=== PATIENT | male | born 1995 | race Two or more races ===

== ENCOUNTER 2021-02-18 09:32 | Outpatient (REF) | payer OTHER, SELFPAY ==
[2021-02-18 10:11] LABS: COVID-19 Test Negative (Negative)
== END 2021-02-18 09:33 | disposition home or self-care (01) ==
LOC: HO.LAB 09:32
PROVIDERS: Visit Provider Internal Medicine
DX: Z20.822 Contact with and (suspected) exposure to COVID-19 (principal)
CPT/HCPCS: 36415; 87635; C9803

== ENCOUNTER 2021-02-19 20:23 | Emergency (ER) | payer OTHER, SELFPAY ==
--- NOTE | 2021-02-19 21:41 | ED_ITS ---
HPI - URI/Sore Throat General Chief Complaint: General Medical Stated Complaint: Sore throat/ cough chest pain Time Seen by Provider: 02/19/21 21:41 Source: patient Mode of arrival: ambulatory Limitations: no limitations History of Present Illness HPI Narrative: Patient complaining of sore throat nasal congestion for last 3 days had COVID testing done yesterday which was negative feels throat scratchy painful to swallow no other family member sick at home, dry cough body aches+ no nausea vomiting diarrhea Related Data Previous Rx's Medication Instructions Recorded amoxicillin-pot clavulanate 1 tab PO BID #20 tab 02/19/21 [Augmentin] Allergies Allergy/AdvReac Type Severity Reaction Status Date / Time No Known Allergies Allergy Verified 02/19/21 21:54 Review of Systems Review of Systems: Yes all other systems are reviewed and are negative [facility] Social History Social History Advance Directives: No Advance Directives Information Provided: No Physical Exam Vital Signs: Vital Signs: Last Vital Signs Temp 98.4 F 02/19/21 21:50 Pulse 91 02/19/21 21:50 Resp 18 02/19/21 21:50 BP 144/89 H 02/19/21 21:50 Pulse Ox 98 02/19/21 21:50 Body Mass Index 41.1 Appearance: Alert. Oriented X3. No acute distress. Eyes: PERRLA, No Nystagmus ENT: Erythema of the posterior pharynx+ no exudate, tonsils normal size, Oral Mucosa moist, tympanic membrane intact Neck: Normal inspection. Neck supple. CVS: Normal heart rate and rhythm. Pulses normal. Respiratory: No respiratory distress. Equal air entry bilateral, no wheezing/rales/rhonchi Abdomen: Soft and nontender. Bowel sounds are present, no mass palpable, no CVA tenderness Skin: Skin warm and dry. Normal skin color. Normal skin turgor. Extremities: No lower extremity edema. No calf tenderness Neuro: Oriented X 3. No motor deficit. No sensory deficit. MDM - URI/Sore Throat Lab Data Attestation: I reviewed the patient's lab results. Labs: Lab Results 02/19/21 Range/Units 22:07 S. pyogenes GrpA SB Negative (Negative) Discharge Plan Discharge Clinical Impression: Acute bacterial pharyngitis Patient Disposition: Home, Self-Care Instructions: Pharyngitis (ED) Additional Instructions: Take antibiotic as prescribed. Drink plenty of fluids Prescriptions: New amoxicillin-pot clavulanate [Augmentin] 875-125 mg tablet 1 tab PO BID Qty: 20 RF: 0 Discharge Date/Time: 02/19/21 22:53
[2021-02-19 21:50] VITALS: BP 144/89; PULSE 91; RESP 18; TEMP 36.9; O2SAT 98; BMI 41.1
[2021-02-19] MEDS: Amoxicillin/Potassium Clav 875 MG TABLET PO (22:18)
[2021-02-19 22:20] LABS: IDNOW Serial# 9DD0AD1C; Strep A Nucleic Acid Negative (Negative)
== END 2021-02-19 22:53 | disposition home or self-care (01) ==
PROVIDERS: Emergency Provider Internal Medicine
DX: J02.8 Acute pharyngitis due to other specified organisms (principal)
CPT/HCPCS: 36415; 87651; 99283

== ENCOUNTER 2021-04-23 11:40 | Emergency (ER) | payer OTHER, SELFPAY ==
--- NOTE | ~2021-04-23 | XR_ITS ---
EXAMINATION: XR CHEST CLINICAL INFORMATION: Productive cough. COMPARISON: Chest radiograph dated 06/27/2019. TECHNIQUE: 2 views of the chest were obtained. FINDINGS: The lungs are clear. The cardiomediastinal silhouette is normal in size. There is no pleural effusion or pneumothorax. No acute osseous abnormality. XR/XR chest 2V IMPRESSION: No acute cardiopulmonary findings.
[2021-04-23 11:43] VITALS: BP 133/82; PULSE 90; RESP 18; TEMP 36.7; O2SAT 99; BMI 41.2
--- NOTE | 2021-04-23 13:11 | ED_ITS ---
HPI - Abdominal Pain General Chief Complaint: Abdominal Pain Stated Complaint: cp Time Seen by Provider: 04/23/21 13:11 Source: patient Mode of arrival: ambulatory Limitations: no limitations History of Present Illness HPI narrative: epigastric pain radiating to throat MD elicited complaint: abdominal pain Pertinent past history: none Onset (ago): day(s) Pain Consistency: intermittent Location: epigastric Severity: mild Radiation: other (jaw and neck) Associated symptoms: other (cough and phlegm) Related Data Previous Rx's Medication Instructions Recorded amoxicillin-pot clavulanate 1 tab PO BID #20 tab 02/19/21 [Augmentin] pantoprazole [Protonix] 40 mg PO DAILY #20 tab 04/23/21 Allergies Allergy/AdvReac Type Severity Reaction Status Date / Time No Known Allergies Allergy Verified 02/19/21 21:54 Review of Systems Constitutional: Reports no additional constitutional complaints Eyes: Reports no additional eye complaints Denies dizziness Cardiovascular: Reports no additional cardiovascular complaints Respiratory: Reports as per HPI Gastrointestinal: Reports no additional gastrointestinal complaints Musculoskeletal: Reports no additional musculoskeletal complaints Skin/Breast: Denies rash Reports system reviewed and no additional complaints, except as documented, Denies dizziness and Denies Sensory deficit (Neuro) Psychiatric: Denies anxiety Physical Exam Vital Signs: Vital Signs: Last Vital Signs Temp 98.0 F 04/23/21 11:43 Pulse 90 04/23/21 11:43 Resp 18 04/23/21 11:43 BP 133/82 04/23/21 11:43 Pulse Ox 99 04/23/21 11:43 Body Mass Index 41.2 Const: General: healthy appearing Nutritional Appearance: overweight Orientation/consciousness: oriented to person and patient oriented x3 Limitations: no limitations HENMT: Head: Yes normal to inspection Ears: external ears normal General nose exam: Normal external nose present Mouth: Normal oral and palatal mucosa present and oropharynx normal Throat: Yes posterior oropharynx normal Eyes: General: appearance normal, both eyes and all related structures Neck: Other: supple Neck: Yes normal visual inspection Chest: Chest palpation & inspection: normal inspection of the chest Resp: Auscultation: clear to auscultation bilaterally Cardio: Jugular venous distension: no JVD Rate: regular rate Rhythm: regular rhythm Heart sounds: S1 normal heart sound present and S2 normal heart sound present GI: Inspection: Yes normal to inspection Palpation (GI): Soft to palpation, nontender and No hepatosplenomegaly present Auscultation: normal bowel sounds : General: Yes no CVA tenderness Back/Spine/Pelvis: Back: no CVA tenderness Skin: General skin exam: no rashes or lesions noted Neuro: General: oriented to person and patient oriented x3 Cranial nerves: Yes CN's II-XII intact bilaterally Motor exam (neuro): 5/5 motor strength present throughout Sensory Exam: No Sensory deficit (Neuro) Extrem: General: Yes normal to inspection Psych: Appearance: grossly normal Course Reevaluation(s) Reevaluation #1: Physical, labs, vitals, EKG, troponin and CXR all normal. Likely gastritis and reflux will dc on protonix Time: 14:51 MDM - Abdominal Pain Lab Data Result diagrams: 04/23/21 13:42 04/23/21 13:42 Labs: Lab Results 04/23/21 04/23/21 04/23/21 Range/Units 13:42 13:42 13:42 WBC 11.1 H (4.8-10.8) X10*3/uL RBC 5.10 (4.60-5.80) X10*6/uL Hgb 14.9 (14.0-18.0) g/dl Hct 44.7 (42-52) % MCV 87.6 (80-98) fL MCH 29.2 (27.0-33.0) pg MCHC 33.3 (31.0-36.0) g/dl RDW 12.4 (11.0-16.0) % Plt Count 246 (160-400) X10*3/uL MPV 10.1 (9.4-12.4) fL Immature Gran % (Auto) 0.3 (0.0-0.4) % Neut % (Auto) 61.6 (45-73) % Lymph % (Auto) 28.8 (20-40) % [place] % (Auto) 6.4 (2-11) % Eos % (Auto) 2.5 (0-4) % Baso % (Auto) 0.4 (0-2) % Lymph # (Auto) 3.2 (1.2-4.9) X10*3/uL [place] # (Auto) 0.7 (0.1-1.2) X10*3/uL Eos # (Auto) 0.3 (0.0-0.4) X10*3/uL Baso # (Auto) 0.0 (0.0-0.2) X10*3/uL Abs Immat Gran (auto) 0.03 (0.00-0.03) X10*3/uL Absolute Neuts (auto) 6.9 (2.0-8.3) X10*3/uL Absolute Nucleated RBC 0.000 (0.0-0.012) X10*3/uL Nucleated RBC % (auto) 0.0 (0.0-0.2) /100WBC Sodium 140 (135-145) mmol/L Potassium 4.5 (3.3-5.1) mmol/L Chloride 107 (96-108) mmol/L Carbon Dioxide 27 (22-29) mmol/L Anion Gap 11 L (12-20) BUN 11 (9-16) mg/dL Creatinine 1.09 (0.5-1.4) mg/dL Estim Creat Clear Calc 160.6 Estimated GFR > 60 Random Glucose 84 (60-115) mg/dL Calcium 9.2 (8.4-10.2) mg/dL Troponin I High Sens < 3.5 (<3.5-35.0) ng/L Imaging Data Chest x-ray: Radiologist's impression: IMPRESSION: No acute cardiopulmonary findings. ECG Data Attestation: I personally reviewed and interpreted this ECG as follows: Interpretation: normal sinus rate of 65, no st or twave changes Discharge Plan Discharge Clinical Impression: Chest pain due to GERD Patient Disposition: Home, Self-Care Instructions: Gastroesophageal Reflux Disease (ED) Prescriptions: New pantoprazole [Protonix] 40 mg tablet,delayed release (DR/EC) 40 mg PO DAILY Qty: 20 RF: 0 No Action amoxicillin-pot clavulanate [Augmentin] 875-125 mg tablet 1 tab PO BID Qty: 20 RF: 0 Referrals: Physician,Unknown [Physician] - 1 week PMF Past Medical History Medical History No known health problems Social History Social History Advance Directives: Yes Advance Directives Information Provided: Yes Advance Directives on File: No
--- NOTE | 2021-04-23 13:17 | ECG_ITS ---
Test Reason : ABDOMINAL PAIN Blood Pressure : / mmHG Vent. Rate : 066 BPM Atrial Rate : 066 BPM P-R Int : 184 ms QRS Dur : 084 ms QT Int : 370 ms P-R-T Axes : 016 028 042 degrees QTc Int : 387 ms Normal sinus rhythm with sinus arrhythmia Normal ECG When compared with ECG of 27-JUN-2016 12:09, No significant change was found Referred By: Govind Tanner Electronically Signed By:Antonio Zhu
[2021-04-23] MEDS: Famotidine 20 MG TABLET PO (13:45)
[2021-04-23 13:46] LABS: MANUAL DIFF FLAG NO
[2021-04-23 13:48] LABS: Basophils Percent Auto 0.4 % (0-2); Eosinophils Absolute Auto 0.3 X10*3/uL (0.0-0.4); Eosinophils Percent Auto 2.5 % (0-4); Hematocrit 44.7 % (42-52); Hemoglobin 14.9 g/dl (14.0-18.0); Imm Gran Abs Auto 0.03 X10*3/uL (0.00-0.03); Imm Gran Pct Auto 0.3 % (0.0-0.4); Lymphocytes Absolute Auto 3.2 X10*3/uL (1.2-4.9); Lymphocytes Percent Auto 28.8 % (20-40); Mean Corpuscular HGB Conc 33.3 g/dl (31.0-36.0); Mean Corpuscular Hemoglobin 29.2 pg (27.0-33.0); Mean Corpuscular Volume 87.6 fL (80-98); Mean Platelet Volume 10.1 fL (9.4-12.4); Monocytes Absolute Auto 0.7 X10*3/uL (0.1-1.2); Monocytes Percent Auto 6.4 % (2-11); Neutrophils Absolute Auto 6.9 X10*3/uL (2.0-8.3); Neutrophils Percent Auto 61.6 % (45-73); Platelet Count 246 X10*3/uL (160-400); Red Cell Distribution Width 12.4 % (11.0-16.0); White Blood Count 11.1 X10*3/uL (4.8-10.8)
[2021-04-23 14:12] LABS: Anion Gap 11 (12-20); Blood Urea Nitrogen 11 mg/dL (9-16); Calcium 9.2 mg/dL (8.4-10.2); Carbon Dioxide 27 mmol/L (22-29); Chloride 107 mmol/L (96-108); Creatinine Clr Calc Pharmacy 160.6; Estimated Glomerular Filt Rate > 60; Glucose Random 84 mg/dL (60-115); Potassium 4.5 mmol/L (3.3-5.1); Sodium 140 mmol/L (135-145)
[2021-04-23 14:14] LABS: Troponin-I High Sensitivity < 3.5 ng/L (<3.5-35.0)
== END 2021-04-23 15:00 | disposition home or self-care (01) ==
PROVIDERS: Emergency Provider Emergency Medicine; PCP Advanced Practice Midwife
DX: K21.9 Gastro-esophageal reflux disease without esophagitis (principal)
CPT/HCPCS: 36415; 71046; 80048; 84484; 85025; 93005; 99283

== ENCOUNTER 2021-05-13 02:21 | Emergency (ER) | payer OTHER, SELFPAY ==
[2021-05-13 02:31] VITALS: BP 131/77; PULSE 100; RESP 20; TEMP 36.6; O2SAT 96; BMI 42.3
--- NOTE | 2021-05-13 02:52 | ED_ITS ---
HPI - URI/Sore Throat General Chief Complaint: Dyspnea Stated Complaint: Flu like Time Seen by Provider: 05/13/21 02:51 Source: patient Mode of arrival: ambulatory Limitations: no limitations History of Present Illness HPI Narrative: Patient not vaccinated with COVID complaining of cold-like symptoms for last 2 days with body aches chills subjective shortness of breath saturating 96% on room air. Related Data Previous Rx's Medication Instructions Recorded amoxicillin 875 mg-potassium 1 tab PO BID #20 tab 02/19/21 clavulanate 125 mg tablet (Augmentin) pantoprazole 40 mg tablet,delayed 40 mg PO DAILY #20 tab 04/23/21 release (Protonix) dexamethasone 6 mg tablet 6 mg PO DAILY #7 tab 05/13/21 (Decadron) Allergies Allergy/AdvReac Type Severity Reaction Status Date / Time No Known Allergies Allergy Verified 05/13/21 02:33 Review of Systems Review of Systems: Yes all other systems are reviewed and are negative [facility] Past Medical History Medical History No known health problems Social History Social History Advance Directives: No Physical Exam Vital Signs: Vital Signs: Last Vital Signs Temp 97.8 F 05/13/21 02:31 Pulse 100 05/13/21 02:31 Resp 20 05/13/21 02:31 BP 131/77 05/13/21 02:31 Pulse Ox 96 05/13/21 02:31 Body Mass Index 42.3 Appearance: Alert. Oriented X3. No acute distress. ENT: Pharynx normal. Oral Mucosa moist Neck: Normal inspection. Neck supple. CVS: Normal heart rate and rhythm. Pulses normal. Respiratory: No respiratory distress. Equal air entry bilateral, no wheezing/rales/rhonchi Abdomen: Soft and nontender. Bowel sounds are present, no mass palpable, no CVA tenderness Skin: Skin warm and dry. Normal skin color. Normal skin turgor. Extremities: No lower extremity edema. No calf tenderness Neuro: Oriented X 3. MDM - URI/Sore Throat Lab Data Attestation: I reviewed the patient's lab results. Labs: Lab Results 05/13/21 Range/Units 03:07 COVID-19 ([facility]) Positive A (Negative) COVID-19 Clin Com See Note Discharge Plan Discharge Clinical Impression: COVID-19 Patient Disposition: Home, Self-Care Instructions: COVID-19 (Coronavirus Disease 2019) (ED) Additional Instructions: Rest at home Drink plenty of fluids Report to the ER if increased shortness of breath Prescriptions: New dexamethasone [Decadron] 6 mg tablet 6 mg PO DAILY Qty: 7 RF: 0 No Action amoxicillin-pot clavulanate [Augmentin] 875-125 mg tablet 1 tab PO BID Qty: 20 RF: 0 pantoprazole [Protonix] 40 mg tablet,delayed release (DR/EC) 40 mg PO DAILY Qty: 20 RF: 0
[2021-05-13 03:37] LABS: IDNOW Serial# 9DD0AD1C
[2021-05-13 03:38] LABS: COVID-19 Test Positive (Negative)
[2021-05-13] MEDS: dexAMETHasone 6 MG TABLET PO (04:53)
== END 2021-05-13 05:01 | disposition home or self-care (01) ==
PROVIDERS: Emergency Provider Internal Medicine; PCP Internal Medicine
DX: U07.1 COVID-19 (principal)
CPT/HCPCS: 36415; 87635; 99283; J8540

== ENCOUNTER 2021-05-29 08:54 | Outpatient (REF) | payer OTHER, SELFPAY | END 2021-05-29 08:55 | disposition home or self-care (01) | LOC: HO.LAB 08:54 | PROVIDERS: Visit Provider Internal Medicine | DX: Z20.822 Contact with and (suspected) exposure to COVID-19 (principal) | CPT/HCPCS: U0003; U0005 ==

== ENCOUNTER 2021-06-09 09:04 | Outpatient (REF) | payer OTHER, SELFPAY ==
[2021-06-09 09:58] LABS: Influenza A PCR NEGATIVE (Negative); Influenza B PCR NEGATIVE (Negative); Resp Syncy Virus RNA Qual PCR NEGATIVE (Negative); SARS COV2 PCR INHOUSE NEGATIVE (Negative)
== END 2021-06-09 09:05 | disposition home or self-care (01) ==
LOC: HO.LAB 09:04
PROVIDERS: PCP Nurse Practitioner Primary Care; Visit Provider Internal Medicine
DX: Z20.822 Contact with and (suspected) exposure to COVID-19 (principal)
CPT/HCPCS: 0241U; 36415; C9803

== ENCOUNTER 2021-07-18 19:28 | Emergency (ER) | payer OTHER, SELFPAY ==
[2021-07-18 19:47] VITALS: BP 125/72; PULSE 96; RESP 18; TEMP 37.2; O2SAT 97; BMI 43.7
--- NOTE | 2021-07-18 20:31 | ED_ITS ---
HPI - URI/Sore Throat General Chief Complaint: Upper Respiratory Symptoms Stated Complaint: Covid symptoms Time Seen by Provider: 07/18/21 19:55 Source: patient Mode of arrival: ambulatory Limitations: no limitations History of Present Illness MD elicited complaint: cough, sore throat and rhinorrhea Pertinent past history: other (COVID in May) Onset (ago): day(s) (3) Consistency: constant Severity: mild Description of mucous: clear Able to tolerate fluids by mouth: Yes Exacerbating factors: swallowing Relieving factors: nothing Context: sick contacts (works at [employer]) Associated symptoms: sore throat and cough Treatments prior to arrival: none Related Data Previous Rx's Medication Instructions Recorded amoxicillin 875 mg-potassium 1 tab PO BID #20 tab 02/19/21 clavulanate 125 mg tablet (Augmentin) pantoprazole 40 mg tablet,delayed 40 mg PO DAILY #20 tab 04/23/21 release (Protonix) dexamethasone 6 mg tablet 6 mg PO DAILY #7 tab 05/13/21 (Decadron) amoxicillin 500 mg capsule 500 mg PO BID 10 Days #20 cap 07/18/21 Allergies Allergy/AdvReac Type Severity Reaction Status Date / Time No Known Allergies Allergy Verified 05/13/21 02:33 Review of Systems Review of Systems: Constitutional :No Fever, No Chills ENT/Mouth : pos sore throat, pos Rhinorrhea Eyes: No Eye Pain, No Swelling, No Redness Cardiovascular : No Chest Pain, No SOB Respiratory : pos Cough, No Sputum, No Wheezing Gastrointestinal : No Nausea, No Vomiting, No Diarrhea Genitourinary : No Dysuria, No Urinary Frequency, No Hematuria, Musculoskeletal : No joint pain, No Myalgias, No Joint Swelling Skin : No Skin Lesions, No rash Neuro : No Weakness, No Numbness, No Dizziness, No Headache Psych : No Anxiety/Panic, No Depression All other systems reviewed and are negative COUNTS INCLUDE 234 BEDS AT THE [facility] Past Medical History Attestation statement: The following information was validated with the patient. Medical History No known health problems Social History Social History (Updated 07/18/21 @ 21:00 by Micki Mckenna DO) Patient Tobacco Use Status: Never used Tobacco Advance Directives: No Advance Directives Information Provided: No Physical Exam Vital Signs: Vital Signs: Last Vital Signs Temp 99 F 07/18/21 19:47 Pulse 96 07/18/21 19:47 Resp 18 07/18/21 19:47 BP 125/72 07/18/21 19:47 Pulse Ox 97 07/18/21 19:47 Body Mass Index 43.7 Appearance: Alert. Oriented X3. No acute distress. Eyes: Pupils equal, round and reactive to light. ENT: Pharynx mild generalized erythema no patches, uvula midline, mild swelling Neck: Normal inspection. Neck supple. CVS: Normal heart rate and rhythm. Pulses normal. Respiratory: No respiratory distress. Breath sounds normal. Abdomen: Soft and nontender. Skin: Skin warm and dry. Normal skin color. Extremities: No lower extremity edema. Neuro: Oriented X 3. No motor deficit. No sensory deficit. MDM - URI/Sore Throat MDM Narrative Medical decision making narrative: 26 yo male here with URI symptoms and sore throat - no concern for deeper space infetion will will test for COVID and strep throat - dispo per results and findings. Lab Data Labs: Lab Results 07/18/21 Range/Units 19:36 COVID-19 ([facility]) Negative (Negative) COVID-19 Clin Com See Note Discharge Plan Discharge Clinical Impression: Acute streptococcal pharyngitis Patient Disposition: Home, Self-Care Instructions: Strep Throat (ED) Additional Instructions: return to ED for any worsening symptoms or concerns Prescriptions: New amoxicillin 500 mg capsule 500 mg PO BID 10 Days Qty: 20 RF: 0 No Action amoxicillin-pot clavulanate [Augmentin] 875-125 mg tablet 1 tab PO BID Qty: 20 RF: 0 pantoprazole [Protonix] 40 mg tablet,delayed release (DR/EC) 40 mg PO DAILY Qty: 20 RF: 0 dexamethasone [Decadron] 6 mg tablet 6 mg PO DAILY Qty: 7 RF: 0 Stand Alone Forms: Work/School Release
[2021-07-18 20:40] LABS: COVID-19 Test Negative (Negative)
--- NOTE | 2021-07-18 20:44 | PC.NURSE ---
MD at bedside for primary eval. Plan for Strep swab.
[2021-07-18 21:00] LABS: Strep A Nucleic Acid Positive (Negative)
[2021-07-18] MEDS: Amoxicillin 500 MG CAPSULE PO (21:09)
== END 2021-07-18 21:13 | disposition home or self-care (01) ==
PROVIDERS: Emergency Provider Emergency Medicine; PCP Nurse Practitioner Primary Care
DX: J02.0 Streptococcal pharyngitis (principal); Z20.822 Contact with and (suspected) exposure to COVID-19; Z79.899 Other long term (current) drug therapy
CPT/HCPCS: 36415; 87635; 87651; 99283

== ENCOUNTER 2021-07-23 21:13 | Emergency (ER) | payer OTHER, SELFPAY ==
--- NOTE | ~2021-07-23 | XR_ITS ---
EXAMINATION: XR CHEST CLINICAL INFORMATION: SOB and wheezing. COMPARISON: None TECHNIQUE: Frontal view of the chest was obtained. FINDINGS: No significant abnormality is noted involving the heart, lungs, mediastinum, bony thorax or soft tissues. XR/XR chest 1V IMPRESSION: Unremarkable chest examination.
[2021-07-23 21:23] VITALS: BP 140/78; PULSE 82; RESP 18; TEMP 36.7; O2SAT 98; BMI 44.9
--- NOTE | 2021-07-23 22:10 | ED_ITS ---
HPI - URI/Sore Throat General Chief Complaint: Upper Respiratory Symptoms Stated Complaint: Chest Pain/ Covid Symptoms Time Seen by Provider: 07/23/21 21:27 Source: patient Mode of arrival: ambulatory Limitations: no limitations History of Present Illness HPI Narrative: 26-year-old male past medical history significant for asthma presents to the emergency department with shortness of breath, fevers, sore throat, chest discomfort and diarrhea. He states that he has been having the symptoms for over a week and they have been progressively worsening. He states he is short of breath at rest, and with exertion, he states this is not feel like his typical asthma. He reports using 2 times of his inhaler daily for the past week. He reports subjective fevers. He reports a sore throat, however he is currently being treated for strep throat. He has vague complains of chest pain that is substernal, nonradiating, and described as stabbing. He also reports diarrhea for a week, that is completely liquid, and brown he has been having about 3 bowel movements per day. He smokes marijuana, but does not smoke cigarettes. He is not vaccinated against COVID-19. He denies chest pain, chills, malaise, weakness, abdominal pain, changes in urination, anorexia, recent sick contacts. MD elicited complaint: fever, sore throat and other (SOB) Pertinent past history: asthma Onset (ago): week(s) (1) Consistency: constant Severity: moderate Able to tolerate fluids by mouth: Yes Exacerbating factors: nothing Relieving factors: nothing Associated symptoms: fever, sore throat and shortness of breath Treatments prior to arrival: other (Daquil, NyQuil, Mucinex, amoxicillin) Related Data Previous Rx's Medication Instructions Recorded amoxicillin 875 mg-potassium 1 tab PO BID #20 tab 02/19/21 clavulanate 125 mg tablet (Augmentin) pantoprazole 40 mg tablet,delayed 40 mg PO DAILY #20 tab 04/23/21 release (Protonix) dexamethasone 6 mg tablet 6 mg PO DAILY #7 tab 05/13/21 (Decadron) amoxicillin 500 mg capsule 500 mg PO BID 10 Days #20 cap 07/18/21 albuterol sulfate 90 mcg/actuation 1 inh INHALATION QID PRN #8.5 g 07/23/21 aerosol inhaler Allergies Allergy/AdvReac Type Severity Reaction Status Date / Time No Known Allergies Allergy Verified 05/13/21 02:33 Review of Systems Review of Systems: Constitutional : No Weight loss, + Fever, No Chills, No Night Sweats, No Fatigue, No Malaise ENT/Mouth : No Hearing loss, No Ear Pain, No Nasal Congestion, No Sinus Pain, No Hoarseness, + sore throat, No Rhinorrhea, No Swallowing Difficulty Eyes: No Eye Pain, No Swelling, No Redness, No Foreign Body, No Discharge, No Vision Changes Cardiovascular : + Chest Pain, + SOB, + Dyspnea on Exertion, No Orthopnea, No Edema, No Palpitations Respiratory : No Cough, No Sputum, No Wheezing, No Smoke Exposure, No Dyspnea Gastrointestinal : No Nausea, No Vomiting, + Diarrhea, No Constipation, No abdominal Pain, No Hematochezia, No Melena Genitourinary : no irregular bleeding, No Dysuria, No Urinary Frequency, No Hematuria, No Urinary Incontinence, No Urgency, No Flank Pain, No Urinary Flow Changes, No Hesitancy Musculoskeletal : No joint pain, No Myalgias, No Joint Swelling Skin : No Skin Lesions, No rash Neuro : No Weakness, No Numbness, No Paresthesias, No Loss of Consciousness, No Dizziness, No Headache Yes all other systems are reviewed and are negative PMFSH Past Medical History Attestation statement: The following information was validated with the patient. Source: old records reviewed and nursing notes reviewed Medical History No known health problems Social History Social History Patient Tobacco Use Status: Never used Tobacco Advance Directives: No Advance Directives Information Provided: No Physical Exam Vital Signs: Vital Signs: Last Vital Signs Temp 98.1 F 07/23/21 21: Pulse 82 07/23/21 21:23 Resp 18 07/23/21 21:23 BP 140/78 H 07/23/21 21:23 Pulse Ox 98 07/23/21 21:23 Body Mass Index 44.9 Vital signs have been reviewed and All within normal limits. Appearance: Alert. Oriented and active. Well hydrated/Nourished/developed. No acute distress. Head: Normal external exam. Normocephalic. Atraumatic. Eyes: PERRLA. EOMI. Conjunctiva and sclera normal. Eyelids normal. ENT: TM WNL. EAC WNL. Hearing normal. + Pharynx erythematous,+ bilateral tonsil enlargement. Uvula midline. tongue midline. Moist mucous membranes. No trismus noted. No drooling noted. No stridor noted. Tolerating secretions well. Neck: Normal inspection. Neck supple. FROM. No adenopathy. Thyroid Normal. Trachea midline. No meningeal signs. No neck mass noted. CVS: Normal heart rate and rhythm. Heart sound normal. No murmurs noted. Pulses normal throughout. Respiratory: No respiratory distress. Painless inspiration. + decreased breath sounds throughout all lungfields. + wheezing throughout all lungfields . Chest nontender. No accessory muscle usage noted or decreased air movement noted. Abdomen: Soft and nontender. Nondistended. No guarding noted. No rebound tenderness noted. Negative psoas sign/rovsing signs/obturator sign/Hyatt sign. Back: Full range of motion noted. Skin: Skin warm and dry. Normal skin color. Normal skin turgor. No gloria hes/lesions/lacerations noted. Extremities: Extremities exhibit normal range of motion. Extremities nontender. Neuro: Active and alert. No motor deficit. No sensory deficit. Reflexes normal. Moving all extremities. Normal steady gait noted. Course Course Course Narrative: 26-year-old male pmhx asthma presents to the emergency department with 1 week of progressively worsening shortness of breath at rest and on exertion, chest discomfort, subjective fevers, and diarrhea. Not covid-19 vaccinated. To note patient was seen here on 07/18/2021, and diagnosed with strep pharyngitis. He was placed on amoxicillin 500 mg b.i.d. Which he has been taking as prescribed. In may of this year, he tested positive for COVID-19. Upon physical examination there is bilateral tonsil enlargement, and an erythematous pharynx. There is also wheezing appreciated over all lung perez as well as diminished lung sounds. Negative Homans sign. Negative bilateral lower extremity swelling. Basic labs will be ordered to rule out infection. As well as a D-dimer due to the way patient is describing his chest pain. However pulmonary embolism is unlikely, patient is saturating 98% on room air, he is not tachycardic, or tachypneic. Will rule out ACS with an EKG and troponin. Monospot ordered. Reevaluation(s) Reevaluation #1: Chest x-ray normal. EKG no acute ischemia. Trop negative, BNP normal, D dimer negarive. Tipton negative. Laboratory studies reveal no acute infectio. Unlikley ACS, PE and CHF. Likely upper respiratory infection. Due to his SOB he will be DC home with a rx for a rescue inhaler. He should follow up with his PCP. He has been educated on warning signs such as worsening SOB, CP and high fevers or any new or worsening symptoms. Safe for DC home with PCP follow up. MDM - URI/Sore Throat Medical Records Attestation: I reviewed the patient's medical records. Lab Data Attestation: I reviewed the patient's lab results. Result diagrams: 07/23/21 22:34 07/23/21 22:34 Labs: Lab Results 07/23/21 07/23/21 07/23/21 Range/Units 22:26 22:34 22:34 WBC 7.4 (4.8-10.8) X10*3/uL RBC 4.89 (4.60-5.80) X10*6/uL Hgb 14.1 (14.0-18.0) g/dl Hct 42.4 (42-52) % MCV 86.7 (80-98) fL MCH 28.8 (27.0-33.0) pg MCHC 33.3 (31.0-36.0) g/dl RDW 11.9 (11.0-16.0) % Plt Count 198 (160-400) X10*3/uL MPV 9.7 (9.4-12.4) fL Immature Gran % (Auto) 0.1 (0.0-0.4) % Neut % (Auto) 53.4 (45-73) % Lymph % (Auto) 39.8 (20-40) % [place]ipton % (Auto) 6.1 (2-11) % Eos % (Auto) 0.5 (0-4) % Baso % (Auto) 0.1 (0-2) % Lymph # (Auto) 3.0 (1.2-4.9) X10*3/uL [place] # (Auto) 0.5 (0.1-1.2) X10*3/uL Eos # (Auto) 0.0 (0.0-0.4) X10*3/uL Baso # (Auto) 0.0 (0.0-0.2) X10*3/uL Abs Immat Gran (auto) 0.01 (0.00-0.03) X10*3/uL Absolute Neuts (auto) 4.0 (2.0-8.3) X10*3/uL Absolute Nucleated RBC 0.000 (0.0-0.012) X10*3/uL Nucleated RBC % (auto) 0.0 (0.0-0.2) /100WBC D-Dimer NG/ML Sodium 143 (135-145) mmol/L Potassium 4.1 (3.3-5.1) mmol/L Chloride 107 (96-108) mmol/L Carbon Dioxide 29 (22-29) mmol/L Anion Gap 11 L (12-20) BUN 12 (9-16) mg/dL Creatinine 0.95 (0.5-1.4) mg/dL Estim Creat Clear Calc 188.0 Estimated GFR > 60 Random Glucose 121 H D (60-115) mg/dL Calcium 9.3 (8.4-10.2) mg/dL Magnesium 2.0 (1.6-2.6) mg/dL Total Bilirubin 0.3 (0.0-1.0) mg/dL AST 13 (5-37) U/L ALT 21 (0-40) U/L Alkaline Phosphatase 70 (39-117) U/L Troponin I High Sens (<3.5-35.0) ng/L B-Natriuretic Peptide (<100) pg/mL Total Protein 7.3 (6.5-8.0) g/dL Albumin 4.2 (3.5-5.0) g/dL COVID-19 (GABRIEL) Negative (Negative) COVID-19 Clin Com See Note Monoscreen (Negative) 07/23/21 07/23/21 07/23/21 Range/Units 22:34 22:34 22:34 WBC (4.8-10.8) X10*3/uL RBC (4.60-5.80) X10*6/uL Hgb (14.0-18.0) g/dl Hct (42-52) % MCV (80-98) fL MCH (27.0-33.0) pg MCHC (31.0-36.0) g/dl RDW (11.0-16.0) % Plt Count (160-400) X10*3/uL MPV (9.4-12.4) fL Immature Gran % (Auto) (0.0-0.4) % Neut % (Auto) (45-73) % Lymph % (Auto) (20-40) % Tipton % (Auto) (2-11) % Eos % (Auto) (0-4) % Baso % (Auto) (0-2) % Lymph # (Auto) (1.2-4.9) X10*3/uL [place]on # (Auto) (0.1-1.2) X10*3/uL Eos # (Auto) (0.0-0.4) X10*3/uL Baso # (Auto) (0.0-0.2) X10*3/uL Abs Immat Gran (auto) (0.00-0.03) X10*3/uL Absolute Neuts (auto) (2.0-8.3) X10*3/uL Absolute Nucleated RBC (0.0-0.012) X10*3/uL Nucleated RBC % (auto) (0.0-0.2) /100WBC D-Dimer < 200 NG/ML Sodium (135-145) mmol/L Potassium (3.3-5.1) mmol/L Chloride (96-108) mmol/L Carbon Dioxide (22-29) mmol/L Anion Gap (12-20) BUN (9-16) mg/dL Creatinine (0.5-1.4) mg/dL Estim Creat Clear Calc Estimated GFR Random Glucose (60-115) mg/dL Calcium (8.4-10.2) mg/dL Magnesium (1.6-2.6) mg/dL Total Bilirubin (0.0-1.0) mg/dL AST (5-37) U/L ALT (0-40) U/L Alkaline Phosphatase (39-117) U/L Troponin I High Sens < 3.5 (<3.5-35.0) ng/L B-Natriuretic Peptide < 10 (<100) pg/mL Total Protein (6.5-8.0) g/dL Albumin (3.5-5.0) g/dL COVID-19 (GABIREL) (Negative) COVID-19 Clin Com Monoscreen Negative (Negative) Imaging Data Chest x-ray: Attestation: I personally reviewed and interpreted this imaging study as follows: Radiologist's impression: FINDINGS: No significant abnormality is noted involving the heart, lungs, mediastinum, bony thorax or soft tissues. XR/XR chest 1V IMPRESSION: Unremarkable chest examination. ECG Data Attestation: I personally reviewed and interpreted this ECG as follows: ECG interpretation date: 07/23/21 ECG interpretation time: 11:09 Prior ECG tracings: available for review Interpretation: Ventricular rate of 75, normal GA interval, normal QRS, normal QT/QTC. EKG shows sinus rhythm, with sinus arrhythmia. No ST elevations, no T-wave inversions. No acute ischemia. No acute changes when compared with previous EKG from 04/23/2021. Critical Care Time Critical Care Time Critical Care Time: No Discharge Plan Discharge Clinical Impression: Upper respiratory infection Qualifiers: URI type: unspecified URI Qualified Code(s): J06.9 - Acute upper respiratory infection, unspecified Patient Disposition: Home, Self-Care Instructions: Upper Respiratory Infection (ED) Additional Instructions: Follow-up with your primary care provider Return to the emergency department with new or worsening symptoms Prescriptions: New albuterol sulfate 90 mcg/actuation HFA aerosol inhaler 1 inh inhalation QID PRN (Reason: shortness of breath or wheezing) Qty: 8.5 RF: 0 No Action amoxicillin-pot clavulanate [Augmentin] 875-125 mg tablet 1 tab PO BID Qty: 20 RF: 0 pantoprazole [Protonix] 40 mg tablet,delayed release (DR/EC) 40 mg PO DAILY Qty: 20 RF: 0 dexamethasone [Decadron] 6 mg tablet 6 mg PO DAILY Qty: 7 RF: 0 amoxicillin 500 mg capsule 500 mg PO BID 10 Days Qty: 20 RF: 0 Referrals: Haydee Miller [employer]VIEWER [Primary Care Provider] - 2 days Stand Alone Forms: Work/School Release
--- NOTE | 2021-07-23 22:15 | ECG_ITS ---
Test Reason : Chest Pain Blood Pressure : / mmHG Vent. Rate : 075 BPM Atrial Rate : 075 BPM P-R Int : 176 ms QRS Dur : 086 ms QT Int : 382 ms P-R-T Axes : 017 021 042 degrees QTc Int : 426 ms Sinus rhythm with marked sinus arrhythmia Otherwise normal ECG No significant changes seen Referred By: Homa Rios Electronically Signed By:MICHAEL DOMINGO MD
[2021-07-23 22:37] LABS: MANUAL DIFF FLAG NO
[2021-07-23 22:39] LABS: Basophils Percent Auto 0.1 % (0-2); Eosinophils Percent Auto 0.5 % (0-4); Hematocrit 42.4 % (42-52); Hemoglobin 14.1 g/dl (14.0-18.0); Imm Gran Abs Auto 0.01 X10*3/uL (0.00-0.03); Imm Gran Pct Auto 0.1 % (0.0-0.4); Lymphocytes Percent Auto 39.8 % (20-40); Mean Corpuscular HGB Conc 33.3 g/dl (31.0-36.0); Mean Corpuscular Hemoglobin 28.8 pg (27.0-33.0); Mean Corpuscular Volume 86.7 fL (80-98); Mean Platelet Volume 9.7 fL (9.4-12.4); Monocytes Absolute Auto 0.5 X10*3/uL (0.1-1.2); Monocytes Percent Auto 6.1 % (2-11); Neutrophils Percent Auto 53.4 % (45-73); Platelet Count 198 X10*3/uL (160-400); Red Blood Count 4.89 X10*6/uL (4.60-5.80); Red Cell Distribution Width 11.9 % (11.0-16.0); White Blood Count 7.4 X10*3/uL (4.8-10.8)
[2021-07-23 22:44] LABS: COVID-19 Test Negative (Negative)
[2021-07-23 22:47] LABS: D Dimer < 200 NG/ML
[2021-07-23] MEDS: Albuterol Sulfate 90 MCG 8 GM INHALER 4 PUFF INHALE (22:47)
[2021-07-23 22:57] LABS: Alanine Aminotransferase 21 U/L (0-40); Albumin Level 4.2 g/dL (3.5-5.0); Alkaline Phosphatase 70 U/L (39-117); Anion Gap 11 (12-20); Aspartate Amino Transferase 13 U/L (5-37); B Type Natriuretic Peptide < 10 pg/mL (<100); Bilirubin Total 0.3 mg/dL (0.0-1.0); Blood Urea Nitrogen 12 mg/dL (9-16); Calcium 9.3 mg/dL (8.4-10.2); Carbon Dioxide 29 mmol/L (22-29); Chloride 107 mmol/L (96-108); Estimated Glomerular Filt Rate > 60; Glucose Random 121 mg/dL (60-115); Potassium 4.1 mmol/L (3.3-5.1); Sodium 143 mmol/L (135-145); Total Protein 7.3 g/dL (6.5-8.0); Troponin-I High Sensitivity < 3.5 ng/L (<3.5-35.0)
[2021-07-23 23:43] LABS: Monotest Negative (Negative)
== END 2021-07-24 00:02 | disposition home or self-care (01) ==
PROVIDERS: Physician Assistant Medical; Emergency Provider Emergency Medicine; PCP Nurse Practitioner Primary Care
DX: J06.9 Acute upper respiratory infection, unspecified (principal); J02.0 Streptococcal pharyngitis; R07.9 Chest pain, unspecified; R06.02 Shortness of breath; J45.909 Unspecified asthma, uncomplicated; Z86.16 Personal history of COVID-19; Z79.899 Other long term (current) drug therapy
CPT/HCPCS: 36415; 71045; 80053; 83735; 83880; 84484; 85025; 85379; 86308; 87635; 93005; 99284

== ENCOUNTER 2022-04-08 09:52 | Outpatient (REF) | payer OTHER, SELFPAY ==
[2022-04-08 10:58] LABS: Basophils Percent Auto 0.5 % (0-2); Eosinophils Absolute Auto 0.3 X10*3/uL (0.0-0.4); Eosinophils Percent Auto 3.2 % (0-4); Hematocrit 44.5 % (42.0-52.0); Hemoglobin 14.6 g/dl (14.0-18.0); Imm Gran Abs Auto 0.02 X10*3/uL (0.00-0.03); Imm Gran Pct Auto 0.2 % (0.0-0.4); Lymphocytes Absolute Auto 2.8 X10*3/uL (1.2-4.9); Lymphocytes Percent Auto 34.6 % (20-40); MANUAL DIFF FLAG NO; Mean Corpuscular HGB Conc 32.8 g/dl (31.0-36.0); Mean Corpuscular Hemoglobin 28.5 pg (27.0-33.0); Mean Corpuscular Volume 86.7 fL (80.0-98.0); Mean Platelet Volume 9.9 fL (9.4-12.4); Monocytes Absolute Auto 0.4 X10*3/uL (0.1-1.2); Monocytes Percent Auto 5.3 % (2-11); Neutrophils Absolute Auto 4.6 x10*3/uL (2.0-8.3); Neutrophils Percent Auto 56.2 % (45-73); Platelet Count 266 X10*3/uL (160-400); Red Blood Count 5.13 X10*6/uL (4.60-5.80); Red Cell Distribution Width 12.6 % (11.0-16.0); White Blood Count 8.2 X10*3/uL (4.8-10.8)
[2022-04-08 11:18] LABS: Estimated Average Glucose 111 mg/dL; Hemoglobin A1c % 5.5 %
[2022-04-08 11:45] LABS: ~HepC Num1 0.15 S/CO (0.00-0.79); ~Hepatitis C Antibody Nonreactive (Nonreactive)
[2022-04-08 11:47] LABS: Alanine Aminotransferase 27 U/L (0-40); Albumin Level 4.2 g/dL (3.5-5.0); Alkaline Phosphatase 77 U/L (39-117); Anion Gap 15 (12-20); Aspartate Amino Transferase 19 U/L (5-37); Bilirubin Total 0.7 mg/dL (0.0-1.0); Blood Urea Nitrogen 12 mg/dL (9-16); Carbon Dioxide 24 mmol/L (22-29); Chloride 104 mmol/L (96-108); Cholesterol 194 mg/dL; Estimated Glomerular Filt Rate > 60; Glucose Random 99 mg/dL (60-115); HDL Cholesterol 42 mg/dL; LDL Cholesterol Calculated 132 mg/dl; Potassium 4.5 mmol/L (3.3-5.1); Sodium 138 mmol/L (135-145); Total Protein 7.4 g/dL (6.5-8.0); Triglycerides 103 mg/dL
[2022-04-08 12:09] LABS: TSH reflex Free T4 2.88 uIU/mL (0.32-4.0)
== END 2022-04-08 09:53 | disposition home or self-care (01) ==
LOC: HO.LAB 09:52
PROVIDERS: PCP Registered Nurse; Visit Provider Registered Nurse
DX: Z00.00 Encounter for general adult medical examination without abnormal findings (principal)
CPT/HCPCS: 36415; 80053; 80061; 83036; 84443; 85025; 86803

== ENCOUNTER 2023-02-04 22:31 | Emergency (ER) | payer OTHER, SELFPAY ==
[2023-02-04 22:34] VITALS: BP 127/79; PULSE 104; RESP 20; TEMP 36.4; O2SAT 94; BMI 33.9
[2023-02-04 22:47] VITALS: BP 141/92; PULSE 98; RESP 16; TEMP 36.7; O2SAT 96
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
[2023-02-05] MEDS: oxyCODONE HCl Immed Release 5 MG TABLET PO (00:01)
[2023-02-05] MEDS: Diphth,Pertus(ACell),Tet Adult 0.5 ML SYRINGE IM (00:02)
[2023-02-05] MEDS: Bacitracin Oint 0.9 GM PACKET 1 APPL TOPICAL (00:02)
== END 2023-02-04 23:59 | disposition home or self-care (01) ==
PROVIDERS: Emergency Provider Emergency Medicine; PCP Registered Nurse
DX: T65.91XA Toxic effect of unspecified substance, accidental (unintentional), initial encounter (principal); T23.631A Corrosion of second degree of multiple right fingers (nail), not including thumb, initial encounter; Y93.9 Activity, unspecified; Y92.9 Unspecified place or not applicable; Y99.9 Unspecified external cause status
CPT/HCPCS: 16000; 90471; 90715; 99284; 99285

== ENCOUNTER 2023-02-15 14:49 | Emergency (ER) | payer OTHER, SELFPAY ==
--- NOTE | 2023-02-15 15:37 | ED.UPPEXIN ---
HPI - Extremity Injury (Upper) General Chief Complaint: Wound/Laceration <WINNIE Guillen - Last Filed: 02/15/23 15:46> Stated Complaint: Chemical burn R hand work inj <WINNIE Guillen - Last Filed: 02/15/23 15:46> Time Seen by Provider: 02/15/23 16:22 <WINNIE Guillen - Last Filed: 02/15/23 15:46> Source: patient <Aime Arana - Last Filed: 02/15/23 16:43> Limitations: no limitations <Aime Arana - Last Filed: 02/15/23 16:43> History of Present Illness HPI narrative: Patient recently had a chemical burn to his right hand dorsum aspect on 02/04/2023. Patient has some peeling skin in the 3rd finger was [facility] but has yet to be seen. Patient was concern for some discharge from the middle finger. Patient denies any fever chills. Symptoms are [id number]. Patient denies any new injuries or harrington to the hand. No other complaints at this time. <Aime Arana - Last Filed: 02/15/23 16:43> Related Data Home Medications: Previous Rx's Medication Instructions Recorded amoxicillin 875 mg-potassium 1 tab PO BID #20 tabs 02/19/21 clavulanate 125 mg tablet (Augmentin) pantoprazole 40 mg tablet,delayed 40 mg PO DAILY #20 tabs 04/23/21 release (Protonix) dexamethasone 6 mg tablet 6 mg PO DAILY #7 tabs 05/13/21 (Decadron) amoxicillin 500 mg capsule 500 mg PO BID 10 days #20 caps 07/18/21 albuterol sulfate 90 mcg/actuation 1 inh inhalation QID PRN shortness 07/23/21 aerosol inhaler of breath or wheezing #8.5 grams bacitracin zinc 500 unit/gram 1 appl topical 5XD #113 grams 02/04/23 topical ointment ibuprofen 600 mg tablet 600 mg PO TID PRN fever or pain 02/04/23 #20 tabs oxycodone 5 mg tablet 5 mg PO TID PRN pain #7 tabs 02/04/23 <WINNIE Guillen Last Filed: 02/15/23 15:46> Allergies/Adverse Reactions: Allergies Allergy/AdvReac Type Severity Reaction Status Date / Time No Known Allergies Allergy Verified 05/13/21 02:33 <WINNIE Guillen - Last Filed: 02/15/23 15:46> Review of Systems Review of Systems: General: No fever, no chills Muscle skeletal: Right 3rd finger pain Psychiatric: No depression, no suicidal ideation, no homicidal ideation Skin: Positive peeling skin and bur healing harrington the right hand Immunology: No immunocompromised Hematology: No bleeding, no bruising <Aime Arana - Last Filed: 02/15/23 16:43> [facility] Past Medical History Medical History: Medical History No known health problems <WINNIE Guillen - Last Filed: 02/15/23 15:46> Social History Social History: Social History Alcohol intake: never Patient Tobacco Use Status: Never used Tobacco Advance Directives: No Advance Directives Information Provided: Yes <WINNIE Guillen - Last Filed: 02/15/23 15:46> Physical Exam Vital Signs: Vital Signs: Last Vital Signs Temp 98.1 F 02/15/23 15:38 Pulse 78 02/15/23 15:38 Resp 18 02/15/23 15:38 BP 113/83 02/15/23 15:38 Pulse Ox 97 02/15/23 15:38 O2 Del Method Room Air 02/15/23 15:38 BMI result Body Mass Index 49.9 <WINNIE Guillen - Last Filed: 02/15/23 15:46> Vital Signs: Last Vital Signs Temp 98.1 F 02/15/23 15:38 Pulse 78 02/15/23 15:38 Resp 18 02/15/23 15:38 BP 113/83 02/15/23 15:38 Pulse Ox 97 02/15/23 15:38 O2 Del Method Room Air 02/15/23 15:38 BMI result Body Mass Index 49.9 <Aime Arana - Last Filed: 02/15/23 16:43> General appearance: Awake, alert, cooperative, in no acute distress Skin: Warm, dry, no rash Eyes: PERRL, EOM ENT: Oropharynx normal Neck: Trachea midline Extremities: Right hand patient has healing harrington to the dorsum of the digits non circumferential harrington. Noted on 2nd 3rd 4th and 5th. Third finger has a wound that is open with healing eschar underneath no purulent discharge. Cap refills intact pulses are intact Neuro: Alert oriented x3, no focal deficit Psych: Normal affect <Aime Arana - Last Filed: 02/15/23 16:43> Course Course Course Narrative: RME: 27yo M w/no sig PMHx presenting to the ED c/o continued chemical burn to right hand s/p using [employer] 700 on 02/04. patient was seen & tx in the ED after incident, reports compliance with [employer]. States thought ED made him an appt with wound care however he never called. +healing harrington noted to right hand/all digits. Some pus drainage noted to middle digit Full HPI, ROS and PE to be performed by primary ED provider. <WINNIE Guillen - Last Filed: 02/15/23 15:46> Medical Decision Making Medical Decision Making MDM Narrative: Right hand healing chemical burn Cellulitis Wound debridement 27-year-old male status post chemical burn back on 02/04/2023. Patient noticed peeling skin to the 3rd finger none of the wounds or harrington are circumferential. Well-healing wounds on 2nd 4th and 5th fingers. Third finger has peeling open skin that will need debridement. Right hand 3rd finger clean with saline Folded skin trimmed with scissors tolerated well Xeroform dressing applied with nonstick Patient instructed to continue to use Silvadene to the other brands as there healing well keep this dressing on for 24-36 hours and topical dressings continue to follow-up with Wound Care as originally directed <Aime Arana - Last Filed: 02/15/23 16:43> Discharge Plan Discharge Clinical Impression: Chemical burn <WINNIE Guillen Last Filed: 02/15/23 15:46> Patient Disposition: Home, Self-Care <WINNIE Guillen Last Filed: 02/15/23 15:46> Instructions: Chemical Skin Burn (ED) <WINNIE Guillen Last Filed: 02/15/23 15:46> Additional Instructions: Continue to use Silvadene as directed Call wound care for follow-up Return if symptoms worsen Watch for signs of increased fever redness or purulent discharge <WINNIE Guillen - Last Filed: 02/15/23 15:46> Prescriptions: No Action amoxicillin-pot clavulanate [Augmentin] 875-125 mg tablet 1 tab PO BID Qty: 20 0RF pantoprazole [Protonix] 40 mg tablet,delayed release (DR/EC) 40 mg PO DAILY Qty: 20 0RF dexamethasone [Decadron] 6 mg tablet 6 mg PO DAILY Qty: 7 0RF amoxicillin 500 mg capsule 500 mg PO BID 10 Days Qty: 20 0RF albuterol sulfate 90 mcg/actuation HFA aerosol inhaler 1 inh inhalation QID PRN (Reason: shortness of breath or wheezing) Qty: 8.5 0RF oxycodone 5 mg tablet 5 mg PO TID PRN (Reason: pain) Qty: 7 0RF Rx Instructions: Partial Fill upon patient request. bacitracin zinc 500 unit/gram ointment 1 appl topical 5XD Qty: 113 0RF ibuprofen 600 mg tablet 600 mg PO TID PRN (Reason: fever or pain) Qty: 20 0RF <WINNIE Guillen - Last Filed: 02/15/23 15:46> Stand Alone Forms: Work/School Release <WINNIE Guillen - Last Filed: 02/15/23 15:46>
[2023-02-15 15:38] VITALS: BP 113/83; PULSE 78; RESP 18; TEMP 36.7; O2SAT 97; BMI 49.9
--- NOTE | 2023-02-15 16:18 | PC.NURSE ---
Patient sustained a chemical burn on 02/04 at work and has been between this facility and [facility]. Patient states that a few days ago the skin on his middle finger has opened up and is raw. Patient states that the pain shoots up his arm and makes the arm feels numb. Patient is otherwise well appearing at this time, burn noted to all the fingers on his left hand.
[2023-02-15 17:01] VITALS: BP 125/87; PULSE 85; RESP 14; O2SAT 97
== END 2023-02-15 17:07 | disposition home or self-care (01) ==
PROVIDERS: Emergency Provider Emergency Medicine; PCP Registered Nurse
DX: T65.891D Toxic effect of other specified substances, accidental (unintentional), subsequent encounter (principal); T23.7 Corrosion of third degree of wrist and hand
CPT/HCPCS: 99282; 99284

== ENCOUNTER 2023-03-01 11:41 | Outpatient (RCR) | payer OTHER, SELFPAY | END 2023-03-01 16:00 | disposition home or self-care (01) | LOC: HO.WCC 11:41 | PROVIDERS: PCP Registered Nurse; Visit Provider Physician Assistant | DX: T23.6 Corrosion of second degree of wrist and hand (principal); T65.891D Toxic effect of other specified substances, accidental (unintentional), subsequent encounter; I10 Essential (primary) hypertension; Z87.891 Personal history of nicotine dependence | CPT/HCPCS: 99212 ==

== ENCOUNTER 2023-03-05 21:28 | Emergency (ER) | payer OTHER, SELFPAY ==
--- NOTE | ~2023-03-05 | XR_ITS ---
EXAMINATION: XR CHEST CLINICAL INFORMATION: Vomiting and hypoxia. COMPARISON: Chest radiograph 07/23/2021. TECHNIQUE: Frontal view of the chest was obtained. FINDINGS: Low lung volumes with bronchovascular crowding. No focal infiltrate. No pleural effusion or pneumothorax. Bony thorax is intact. No cardiomediastinal contour abnormality. XR/XR chest 1V IMPRESSION: Low lung volumes with bronchovascular crowding. No focal infiltrate, pleural effusion or pneumothorax.
[2023-03-05 21:39] VITALS: BP 113/74; PULSE 122; RESP 20; TEMP 36.8; O2SAT 93; BMI 47.5
--- NOTE | 2023-03-05 22:03 | ED.GENADULT ---
HPI - General Adult General Chief complaint: ETOH/Substance Use Stated complaint: etoh,vomiting Time Seen by Provider: 03/05/23 21:49 Source: patient and family Mode of arrival: ambulatory Limitations: no limitations History of Present Illness HPI narrative: 27-year-old male came in feeling dizzy with lightheadedness with vomiting after patient drink whiskey and ate edible candy containing 2000 mg of cannabinoid within the last 2 hours before coming to the hospital. Patient was at his normal state until he ate the edible cannabinoid that was offered to him by his family member. No headache, no shortness of breath, no difficulty breathing, patient is still redirectable follow command. Related Data Previous Rx's Medication Instructions Recorded amoxicillin 875 mg-potassium 1 tab PO BID #20 tabs 02/19/21 clavulanate 125 mg tablet (Augmentin) pantoprazole 40 mg tablet,delayed 40 mg PO DAILY #20 tabs 04/23/21 release (Protonix) dexamethasone 6 mg tablet 6 mg PO DAILY #7 tabs 05/13/21 (Decadron) amoxicillin 500 mg capsule 500 mg PO BID 10 days #20 caps 07/18/21 albuterol sulfate 90 mcg/actuation 1 inh inhalation QID PRN shortness 07/23/21 aerosol inhaler of breath or wheezing #8.5 grams bacitracin zinc 500 unit/gram 1 appl topical 5XD #113 grams 02/04/23 topical ointment ibuprofen 600 mg tablet 600 mg PO TID PRN fever or pain 02/04/23 #20 tabs oxycodone 5 mg tablet 5 mg PO TID PRN pain #7 tabs 02/04/23 Allergies Allergy/AdvReac Type Severity Reaction Status Date / Time No Known Allergies Allergy Verified 05/13/21 02:33 Review of Systems Review of Systems: All other systems are reviewed and are negative Constitutional: Reports as per HPI and Reports no additional constitutional complaints Eyes: Reports as per HPI and Reports no additional eye complaints Reports system reviewed and no additional complaints, except as documented Cardiovascular: Reports as per HPI and Reports no additional cardiovascular complaints Respiratory: Reports as per HPI and Reports no additional respiratory complaints Gastrointestinal: Reports as per HPI and Reports no additional gastrointestinal complaints Genitourinary: Reports no additional female genitourinary complaints Musculoskeletal: Reports no additional musculoskeletal complaints Skin/Breast: Reports system reviewed and no additional complaints, except as docu Psychiatric: Reports no additional psychiatric complaints Endocrine: Reports no additional endocrine complaints Hematologic/Lymphatic: Reports no additional hematologic/lymphatic complaints Allergic/Immunologic: Reports no additional allergic/immunologic complaints Reports system reviewed and no additional complaints, except as documented and Reports Abnormal speech present [facility] Past Medical History Medical History No known health problems Social History Social History Alcohol intake: never Patient Tobacco Use Status: Never used Tobacco Advance Directives: No Advance Directives Information Provided: Yes Physical Exam ED Vital Signs: Vital Signs - 24 hr 03/05/23 21:39 03/05/23 22:04 Temperature 98.3 F 98.5 F Pulse Rate 122 H 109 H Respiratory Rate 20 26 H Blood Pressure 113/74 134/68 Pulse Oximetry 93 94 Oxygen Delivery Method Room Air Room Air BMI result Body Mass Index 47.5 Vital signs have been reviewed as appeared to be correct. Blood pressure normal. Heart rate normal. Respiration rate normal. Temperature normal. Oxygen saturation normal. Appearance: Alert. Oriented X3. No acute distress. Head: Normal external exam. Normocephalic. Atraumatic. No Ferreira signs noted. No raccoon eyes noted Eyes: PERRLA. EOMI. Conjunctiva and sclera normal. Eyelids normal. ENT: TM's Normal. Pharynx normal. Uvula midline. Moist mucous membranes. No trismus noted. No drooling noted. No muffled voice noted. Neck: Normal inspection. Neck supple. FROM. No adenopathy. Thyroid Normal. No meningeal signs. No neck mass noted. CVS: Normal heart rate and rhythm. Heart sound normal. No murmurs noted. Pulses normal throughout. Respiratory: No respiratory distress. Painless inspiration. Breath sounds normal. No wheezes/rales/rhonchi noted. Chest nontender. No accessory muscle usage noted or decreased air movement noted. Abdomen: Soft and nontender. Bowel sounds normal in all 4 quadrants. No distention noted. No organomegaly noted. No visible injury noted. Back: No CVA tenderness. Full range of motion noted. Skin: Skin warm and dry. Normal skin color. Normal skin turgor. No rashes/lesions/lacerations noted. Extremities: No lower extremity edema. Extremities exhibit normal range of motion. Extremities nontender. Neuro: Oriented X 3. Cranial nerve exam: II-XII are grossly intact No motor deficit. No sensory deficit. Reflexes normal. Course Course Course Narrative: 27-year-old male obese likely with sleep apnea came in after drinking whiskey and ingested edible marijuana 2000 mg orally patient suddenly started to feel lightheadedness and dizzy. Unremarkable labs, patient is more awake and alert now. Will discharge the patient when he is more sober. Leukocytosis is likely due to stress reaction. Medications Administered Discontinued Medications Generic Name Dose Route Start Last Admin Trade Name Freq PRN Reason Stop Dose Admin Al Hydroxide/Mg Hydroxide 30 ml 03/05/23 22:01 03/05/23 22:14 Magnesium Hydrox/Alum Hydrox 30 Ml Oral.Susp PO 03/05/23 22:02 30 ml ONCE ONE Administration Famotidine 20 mg 03/05/23 22:01 03/05/23 22:14 Famotidine/Pf 20 Mg/2 Ml Vial IVPUSH 03/05/23 22:02 20 mg ONCE ONE Administration Sodium Chloride 1,000 mls @ 999 mls/hr 03/05/23 22:01 03/05/23 22:14 Ns IV 03/05/23 23:01 999 mls/hr .Q1H1M ONE Administration Ondansetron HCl 4 mg 03/05/23 22:01 03/05/23 22:15 Ondansetron Hcl 4 Mg/2 Ml Vial IVPUSH 03/05/23 22:02 4 mg ONCE ONE Administration Medical Decision Making Differential Diagnosis Differential Diagnoses: The differential diagnosis associated with the presentation includes (Marijuana use disorder, alcohol intoxication, electrolyte abnormalities, severe anemia, pneumonia.) Admission/Observation Consideration of admission/observation: Escalation of care including admission/observation considered Lab Data MDM Lab Attestation statement: I reviewed the patient's lab results. 03/05/23 22:13 03/05/23 22:13 Labs: Lab Results 03/05/23 03/05/23 03/05/23 Range/Units 22:13 22:13 22:13 WBC 14.0 H (4.8-10.8) X10*3/uL RBC 4.85 (4.60-5.80) X10*6/uL Hgb 13.7 L (14.0-18.0) g/dl Hct 41.8 L (42.0-52.0) % MCV 86.2 (80.0-98.0) fL MCH 28.2 (27.0-33.0) pg MCHC 32.8 (31.0-36.0) g/dl RDW 12.5 (11.0-16.0) % Plt Count 344 D (160-400) X10*3/uL MPV 9.9 (9.4-12.4) fL Immature Gran % (Auto) 0.4 (0.0-0.4) % Neut % (Auto) 49.1 (45-73) % Lymph % (Auto) 42.4 H (20-40) % Holt % (Auto) 4.9 (2-11) % Eos % (Auto) 2.7 (0-4) % Baso % (Auto) 0.5 (0-2) % Lymph # (Auto) 5.9 H (1.2-4.9) X10*3/uL Holt # (Auto) 0.7 (0.1-1.2) X10*3/uL Eos # (Auto) 0.4 (0.0-0.4) X10*3/uL Baso # (Auto) 0.1 (0.0-0.2) X10*3/uL Abs Immat Gran (auto) 0.05 H (0.00-0.03) X10*3/uL Absolute Neuts (auto) 6.9 (2.0-8.3) x10*3/uL Absolute Nucleated RBC 0.000 (0.0-0.012) X10*3/uL Nucleated RBC % (auto) 0.0 (0.0-0.2) /100WBC Smear Tech's Comments VERIFIED Sodium 141 (135-145) mmol/L Potassium 3.9 (3.3-5.1) mmol/L Chloride 108 (96-108) mmol/L Carbon Dioxide 20 L (22-29) mmol/L Anion Gap 17 (12-20) BUN 12 (9-16) mg/dL Creatinine 1.13 (0.5-1.4) mg/dL Estim Creat Clear Calc 152.8 Estimated GFR > 60 Random Glucose 175 H (60-115) mg/dL Calcium 9.1 (8.4-10.2) mg/dL Total Bilirubin 0.6 (0.0-1.0) mg/dL Direct Bilirubin 0.2 (0.0-0.5) mg/dL AST 22 (5-37) U/L ALT 27 (0-40) U/L Alkaline Phosphatase 67 (39-117) U/L Troponin I High Sens < 2.7 (<3.5-35.0) ng/L B-Natriuretic Peptide (<100) pg/mL Total Protein 7.5 (6.5-8.0) g/dL Albumin 4.2 (3.5-5.0) g/dL Lipase 17 (8-78) U/L 03/05/23 Range/Units 22:13 WBC (4.8-10.8) X10*3/uL RBC (4.60-5.80) X10*6/uL Hgb (14.0-18.0) g/dl Hct (42.0-52.0) % MCV (80.0-98.0) fL MCH (27.0-33.0) pg MCHC (31.0-36.0) g/dl RDW (11.0-16.0) % Plt Count (160-400) X10*3/uL MPV (9.4-12.4) fL Immature Gran % (Auto) (0.0-0.4) % Neut % (Auto) (45-73) % Lymph % (Auto) (20-40) % Holt % (Auto) (2-11) % Eos % (Auto) (0-4) % Baso % (Auto) (0-2) % Lymph # (Auto) (1.2-4.9) X10*3/uL Holt # (Auto) (0.1-1.2) X10*3/uL Eos # (Auto) (0.0-0.4) X10*3/uL Baso # (Auto) (0.0-0.2) X10*3/uL Abs Immat Gran (auto) (0.00-0.03) X10*3/uL Absolute Neuts (auto) (2.0-8.3) x10*3/uL Absolute Nucleated RBC (0.0-0.012) X10*3/uL Nucleated RBC % (auto) (0.0-0.2) /100WBC Smear Tech's Comments Sodium (135-145) mmol/L Potassium (3.3-5.1) mmol/L Chloride (96-108) mmol/L Carbon Dioxide (22-29) mmol/L Anion Gap (12-20) BUN (9-16) mg/dL Creatinine (0.5-1.4) mg/dL Estim Creat Clear Calc Estimated GFR Random Glucose (60-115) mg/dL Calcium (8.4-10.2) mg/dL Total Bilirubin (0.0-1.0) mg/dL Direct Bilirubin (0.0-0.5) mg/dL AST (5-37) U/L ALT (0-40) U/L Alkaline Phosphatase (39-117) U/L Troponin I High Sens (<3.5-35.0) ng/L B-Natriuretic Peptide < 10 (<100) pg/mL Total Protein (6.5-8.0) g/dL Albumin (3.5-5.0) g/dL Lipase (8-78) U/L Independent Interpretation I performed an independent interpretation of an: Plain X-Ray (Chest: No acute intrathoracic pathology.) Radiology Impression Discussion of test interpretation with radiology: I have reviewed the radiologist's reading. Discharge Plan Discharge Clinical Impression: Alcoholic intoxication, Use of cannabinoid edibles Patient Disposition: Home, Self-Care Instructions: Cannabis Abuse (ED) Prescriptions: No Action amoxicillin-pot clavulanate [Augmentin] 875-125 mg tablet 1 tab PO BID Qty: 20 0RF pantoprazole [Protonix] 40 mg tablet,delayed release (DR/EC) 40 mg PO DAILY Qty: 20 0RF dexamethasone [Decadron] 6 mg tablet 6 mg PO DAILY Qty: 7 0RF amoxicillin 500 mg capsule 500 mg PO BID 10 Days Qty: 20 0RF albuterol sulfate 90 mcg/actuation HFA aerosol inhaler 1 inh inhalation QID PRN (Reason: shortness of breath or wheezing) Qty: 8.5 0RF oxycodone 5 mg tablet 5 mg PO TID PRN (Reason: pain) Qty: 7 0RF Rx Instructions: Partial Fill upon patient request. bacitracin zinc 500 unit/gram ointment 1 appl topical 5XD Qty: 113 0RF ibuprofen 600 mg tablet 600 mg PO TID PRN (Reason: fever or pain) Qty: 20 0RF Referrals: Physician,Unknown J [Primary Care Provider] -
[2023-03-05 22:04] VITALS: BP 134/68; PULSE 109; RESP 26; TEMP 36.9; O2SAT 94
[2023-03-05] MEDS: Famotidine/PF 20 MG/2 ML VIAL IVPUSH (22:14)
[2023-03-05] MEDS: Magnesium Hydrox/Alum Hydrox 30 ML ORAL.SUSP PO (22:14)
[2023-03-05] MEDS: 0.9 % Sodium Chloride 1,000 ML 999 ML IV (22:14)
[2023-03-05] MEDS: ondansetron HCL 4 MG/2 ML VIAL IVPUSH (22:15)
[2023-03-05 22:37] LABS: Basophils Absolute Auto 0.1 X10*3/uL (0.0-0.2); Basophils Percent Auto 0.5 % (0-2); Eosinophils Absolute Auto 0.4 X10*3/uL (0.0-0.4); Eosinophils Percent Auto 2.7 % (0-4); Hematocrit 41.8 % (42.0-52.0); Hemoglobin 13.7 g/dl (14.0-18.0); Imm Gran Abs Auto 0.05 X10*3/uL (0.00-0.03); Imm Gran Pct Auto 0.4 % (0.0-0.4); Lymphocytes Absolute Auto 5.9 X10*3/uL (1.2-4.9); Lymphocytes Percent Auto 42.4 % (20-40); MANUAL DIFF FLAG SCAN; Mean Corpuscular HGB Conc 32.8 g/dl (31.0-36.0); Mean Corpuscular Hemoglobin 28.2 pg (27.0-33.0); Mean Corpuscular Volume 86.2 fL (80.0-98.0); Mean Platelet Volume 9.9 fL (9.4-12.4); Monocytes Absolute Auto 0.7 X10*3/uL (0.1-1.2); Monocytes Percent Auto 4.9 % (2-11); Neutrophils Absolute Auto 6.9 x10*3/uL (2.0-8.3); Neutrophils Percent Auto 49.1 % (45-73); Platelet Count 344 X10*3/uL (160-400); Red Blood Count 4.85 X10*6/uL (4.60-5.80); Red Cell Distribution Width 12.5 % (11.0-16.0); SCAN SMEAR FLAG 1
[2023-03-05 22:42] LABS: Alanine Aminotransferase 27 U/L (0-40); Albumin Level 4.2 g/dL (3.5-5.0); Alkaline Phosphatase 67 U/L (39-117); Anion Gap 17 (12-20); Aspartate Amino Transferase 22 U/L (5-37); Bilirubin Direct 0.2 mg/dL (0.0-0.5); Bilirubin Total 0.6 mg/dL (0.0-1.0); Blood Urea Nitrogen 12 mg/dL (9-16); Calcium 9.1 mg/dL (8.4-10.2); Carbon Dioxide 20 mmol/L (22-29); Chloride 108 mmol/L (96-108); Creatinine Clr Calc Pharmacy 152.8; Estimated Glomerular Filt Rate > 60; Glucose Random 175 mg/dL (60-115); Lipase 17 U/L (8-78); Potassium 3.9 mmol/L (3.3-5.1); Sodium 141 mmol/L (135-145); Total Protein 7.5 g/dL (6.5-8.0)
[2023-03-05 22:43] LABS: B Type Natriuretic Peptide < 10 pg/mL (<100); Troponin-I High Sensitivity < 2.7 ng/L (<3.5-35.0)
[2023-03-05 23:06] LABS: SLIDE REVIEW VERIFIED
[2023-03-06 00:35] VITALS: BP 108/58; PULSE 85; RESP 18; O2SAT 94
[2023-03-06 00:54] VITALS: BP 109/60; PULSE 79; RESP 15; TEMP 36.7; O2SAT 94
[2023-03-06 05:43] VITALS: BP 112/60; PULSE 74; RESP 18; O2SAT 100
--- NOTE | 2023-03-06 05:49 | PC.NURSE ---
Pt awake and given glass of water per request. Will notify provider.
[2023-03-06 06:01] VITALS: BP 102/50; PULSE 60; RESP 14; TEMP 36.6; O2SAT 98
--- NOTE | 2023-03-06 06:39 | PC.NURSE ---
pt ambulatory in department with steady gait. provider made aware.
== END 2023-03-06 06:48 | disposition home or self-care (01) ==
PROVIDERS: Emergency Provider Emergency Medicine
DX: F10.220 Alcohol dependence with intoxication, uncomplicated (principal); Y90.9 Presence of alcohol in blood, level not specified; F12.90 Cannabis use, unspecified, uncomplicated; E66.9 Obesity, unspecified; Z68.42 Body mass index [BMI] 45.0-49.9, adult; Z79.899 Other long term (current) drug therapy
CPT/HCPCS: 36415; 71045; 80048; 80076; 83690; 83880; 84484; 85025; 96361; 96374; 96375; 99284; J2405

== ENCOUNTER 2023-08-24 03:14 | Emergency (ER) | payer OTHER, SELFPAY ==
--- NOTE | ~2023-08-24 | XR_ITS ---
EXAMINATION: XR HAND, RIGHT CLINICAL INFORMATION: Injury. Pain. COMPARISON: None available. TECHNIQUE: PA, lateral, and oblique views of the right hand. FINDINGS: The bones and soft tissues are normal. No fracture. Alignment is anatomic. Joint spaces are maintained. No erosions or soft tissue calcifications. XR/XR hand RT min 3V IMPRESSION: No acute osseous abnormality.
[2023-08-24 03:21] VITALS: BP 130/77; PULSE 69; RESP 16; TEMP 36.2; O2SAT 95; BMI 48.8
--- NOTE | 2023-08-24 03:40 | ED_ITS ---
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 no Other injury Related Data Previous Rx's Medication Instructions Recorded amoxicillin 875 mg-potassium 1 tab PO BID #20 tabs 02/19/21 clavulanate 125 mg tablet (Augmentin) pantoprazole 40 mg tablet,delayed 40 mg PO DAILY #20 tabs 04/23/21 release (Protonix) dexamethasone 6 mg tablet 6 mg PO DAILY #7 tabs 05/13/21 (Decadron) amoxicillin 500 mg capsule 500 mg PO BID 10 days #20 caps 07/18/21 albuterol sulfate 90 mcg/actuation 1 inh inhalation QID PRN shortness 07/23/21 aerosol inhaler of breath or wheezing #8.5 grams bacitracin zinc 500 unit/gram 1 appl topical 5XD #113 grams 02/04/23 topical ointment ibuprofen 600 mg tablet 600 mg PO TID PRN fever or pain 02/04/23 #20 tabs oxycodone 5 mg tablet 5 mg PO TID PRN pain #7 tabs 02/04/23 ibuprofen 600 mg tablet 600 mg PO Q6H PRN fever or pain 08/24/23 #30 tabs Allergies Allergy/AdvReac Type Severity Reaction Status Date / Time No Known Allergies Allergy Verified 05/13/21 02:33 Review of Systems 2 Review of Systems: Yes all other systems are reviewed and are negative PMFSH Past Medical History Medical History No known health problems Social History Social History Alcohol intake: never Patient Tobacco Use Status: Never used Tobacco Smoked in Last 30 Days: No Advance Directives: No Advance Directives Information Provided: No Physical Exam 2 Vital Signs: Vital Signs: Last Vital Signs Temp 97.1 F 08/24/23 03:21 Pulse 69 08/24/23 03:21 Resp 16 08/24/23 03:21 BP 130/77 08/24/23 03:21 Pulse Ox 95 08/24/23 03:21 O2 Del Method Room Air 08/24/23 03:21 BMI result Body Mass Index 48.8 Extrem: Hand/finger images: 1. Tenderness on extension of the right thumb no bony tenderness or deformity neurovascular intact Medications Administered Discontinued Medications Generic Name Dose Route Start Last Admin Trade Name Freq PRN Reason Stop Dose Admin Ibuprofen 600 mg 08/24/23 03:44 08/24/23 03:54 Ibuprofen 600 Mg Tablet PO 08/24/23 03:45 600 mg ONCE ONE Administration Medical Decision Making Medical Decision Making MDM Narrative: Patient with right thumb sprain thumb spica splint was given to the patient advised take ibuprofen Independent Interpretation I performed an independent interpretation of an: Plain X-Ray Radiology Impression Discussion of test interpretation with radiology: I have reviewed the radiologist's reading. Discharge Plan Discharge Clinical Impression: Sprain of hand, thumb, right Patient Disposition: Home, Self-Care Instructions: Finger Sprain (ED) Additional Instructions: Wear the splint for support Ibuprofen for pain Prescriptions: New ibuprofen 600 mg tablet 600 mg PO Q6H PRN (Reason: fever or pain) Qty: 30 0RF No Action amoxicillin-pot clavulanate [Augmentin] 875-125 mg tablet 1 tab PO BID Qty: 20 0RF pantoprazole [Protonix] 40 mg tablet,delayed release (DR/EC) 40 mg PO DAILY Qty: 20 0RF dexamethasone [Decadron] 6 mg tablet 6 mg PO DAILY Qty: 7 0RF amoxicillin 500 mg capsule 500 mg PO BID 10 Days Qty: 20 0RF albuterol sulfate 90 mcg/actuation HFA aerosol inhaler 1 inh inhalation QID PRN (Reason: shortness of breath or wheezing) Qty: 8.5 0RF oxycodone 5 mg tablet 5 mg PO TID PRN (Reason: pain) Qty: 7 0RF Rx Instructions: Partial Fill upon patient request. bacitracin zinc 500 unit/gram ointment 1 appl topical 5XD Qty: 113 0RF ibuprofen 600 mg tablet 600 mg PO TID PRN (Reason: fever or pain) Qty: 20 0RF Stand Alone Forms: Work/School Release Interventions: ED Discharge Assessment Last Done: 08/24/23 04:11 Discharge Date/Time: 08/24/23 04:12
[2023-08-24] MEDS: Ibuprofen 600 MG TABLET PO (03:54)
== END 2023-08-24 04:12 | disposition home or self-care (01) ==
PROVIDERS: Emergency Provider Internal Medicine; PCP Registered Nurse
DX: S63.601A Unspecified sprain of right thumb, initial encounter (principal); M79.641 Pain in right hand; X58.XXXA Exposure to other specified factors, initial encounter; Y93.9 Activity, unspecified; Y92.9 Unspecified place or not applicable; Y99.0 Civilian activity done for income or pay
CPT/HCPCS: 29130; 73130; 99283; 99284

== ENCOUNTER 2023-09-16 14:18 | Outpatient (REF) | payer OTHER, SELFPAY | END 2023-09-16 14:19 | disposition home or self-care (01) | LOC: HO.HHCLNP 14:18 | PROVIDERS: Visit Provider Internal Medicine | DX: L73.9 Follicular disorder, unspecified (principal) | CPT/HCPCS: 87070; 87147; 87205 ==

== ENCOUNTER 2023-12-27 18:31 | Emergency (ER) | payer OTHER, SELFPAY ==
[2023-12-27 19:08] VITALS: BP 125/80; PULSE 89; RESP 18; TEMP 36.8; O2SAT 96; BMI 48.8
--- NOTE | 2023-12-27 19:10 | ED.SKABFB ---
HPI - Skin/Abscess/Foreign Bdy General Chief complaint: Skin/Abscess/Foreign Body Stated complaint: left side cyst? Time Seen by Provider: 12/27/23 19:10 Source: patient and RN notes reviewed Mode of arrival: ambulatory Limitations: no limitations History of Present Illness HPI narrative: This is a 28-year-old male, with no known medical problems, presenting to the ER with complaints of painful, red rash on abdomen x 2 days. Pt states that the rash started off as a small area, but has progressed in size. He denies hx of similar symptoms. Denies any known insect bites. No fevers, chills, chest pain, shortness of breath, abdominal pain, nausea, vomiting or diarrhea. Denies taking any medications at home to treat his current symptoms. No other concerns. MD complaint: rash Onset (ago): day(s) Tetanus up to date: yes Location: chest Severity: moderate Quality: aching Pain Consistency: constant Relieving factors: none Exacerbating factors: palpation Context: none Associated symptoms: denies other symptoms Treatments prior to arrival: none Related Data Previous Rx's Medication Instructions Recorded amoxicillin 875 mg-potassium 1 tab PO BID #20 tabs 02/19/21 clavulanate 125 mg tablet (Augmentin) pantoprazole 40 mg tablet,delayed 40 mg PO DAILY #20 tabs 04/23/21 release (Protonix) dexamethasone 6 mg tablet 6 mg PO DAILY #7 tabs 05/13/21 (Decadron) amoxicillin 500 mg capsule 500 mg PO BID 10 days #20 caps 07/18/21 albuterol sulfate 90 mcg/actuation 1 inh inhalation QID PRN shortness 07/23/21 aerosol inhaler of breath or wheezing #8.5 grams bacitracin zinc 500 unit/gram 1 appl topical 5XD #113 grams 02/04/23 topical ointment ibuprofen 600 mg tablet 600 mg PO TID PRN fever or pain 02/04/23 #20 tabs oxycodone 5 mg tablet 5 mg PO TID PRN pain #7 tabs 02/04/23 ibuprofen 600 mg tablet 600 mg PO Q6H PRN fever or pain 08/24/23 #30 tabs cephalexin 250 mg capsule 250 mg PO QID 7 days #28 caps 12/27/23 doxycycline hyclate 100 mg capsule 100 mg PO BID #14 caps 12/27/23 ibuprofen 600 mg tablet 600 mg PO Q6H PRN pain #30 tabs 12/27/23 Allergies Allergy/AdvReac Type Severity Reaction Status Date / Time No Known Allergies Allergy Verified 12/27/23 19:10 Review of Systems Eyes: Eyes: Reports as per [facility] Past Medical History Medical History No known health problems Social History Social History Alcohol intake: never Patient Tobacco Use Status: Never used Tobacco Advance Directives: No Advance Directives Information Provided: No Physical Exam Vital Signs: Vital Signs: Last Vital Signs Temp 98.2 F 12/27/23 19:28 Pulse 81 12/27/23 19:28 Resp 18 12/27/23 19:28 BP 128/80 12/27/23 19:28 Pulse Ox 98 12/27/23 19:28 O2 Del Method Room Air 12/27/23 19:28 BMI result Body Mass Index 48.8 Const: Other: General: Awake, alert, and oriented X3. No acute distress. HEENT: Normal inspection CVS: Normal heart rate and rhythm. Pulses normal. Respiratory: No respiratory distress Skin: Left flank there is an approximately 6x6 round circular area of erythema and warmth, no induration or fluctuance. No drainage. . Extremities: Normal to inspection Neuro: Oriented X 3. No motor deficit. No sensory deficit. Medical Decision Making Medical Decision Making MDM Narrative: This is a 28 y/o M presenting to the ER with complaints of painful rash x 2 days. On arrival, vital signs stable. DDX including cellulititis, abscess, insect bite. Less likely malignanny, cyst, necrosis. PE findings consistent w/ cellulitits, will tx with doxy and keflex. area outlined with skin marker, advised to return with any new or worsening symptoms. He understands and agrees with plan. Stable for d/c Differential Diagnosis Differential Diagnoses: The differential diagnosis associated with the presentation includes see above Tests considered The following testing was considered but not selected: CBC, COMP however no fevers or constitutional sxs Prescription Management I considered prescription management with: Antibiotic Discharge Plan Discharge Clinical Impression: Cellulitis Patient Disposition: Home, Self-Care Instructions: Cellulitis (ED) Additional Instructions: You were seen in the emergency department due to a rash on abdomen. It appears that if the start of a skin infection. We are treating you with an antibiotic, please take full course even if your feeling better. We outlined this region with a skin marker, please return if the area of redness extends beyond this line. Take ibuprofen as needed for pain. Warm compresses 5-6 times per day will help eliminate this area. If any new or worsening symptoms occur including but not limited to fevers, chills, worsening redness, swelling, drainage, please return for re-evaluation. Prescriptions: New doxycycline hyclate 100 mg capsule 100 mg PO BID Qty: 14 0RF cephalexin 250 mg capsule 250 mg PO QID 7 Days Qty: 28 0RF ibuprofen 600 mg tablet 600 mg PO Q6H PRN (Reason: pain) Qty: 30 0RF No Action amoxicillin-pot clavulanate [Augmentin] 875-125 mg tablet 1 tab PO BID Qty: 20 0RF pantoprazole [Protonix] 40 mg tablet,delayed release (DR/EC) 40 mg PO DAILY Qty: 20 0RF dexamethasone [Decadron] 6 mg tablet 6 mg PO DAILY Qty: 7 0RF amoxicillin 500 mg capsule 500 mg PO BID 10 Days Qty: 20 0RF albuterol sulfate 90 mcg/actuation HFA aerosol inhaler 1 inh inhalation QID PRN (Reason: shortness of breath or wheezing) Qty: 8.5 0RF ibuprofen 600 mg tablet 600 mg PO Q6H PRN (Reason: fever or pain) Qty: 30 0RF oxycodone 5 mg tablet 5 mg PO TID PRN (Reason: pain) Qty: 7 0RF Rx Instructions: Partial Fill upon patient request. bacitracin zinc 500 unit/gram ointment 1 appl topical 5XD Qty: 113 0RF ibuprofen 600 mg tablet 600 mg PO TID PRN (Reason: fever or pain) Qty: 20 0RF Stand Alone Forms: Work/School Release Interventions: ED Discharge Assessment Last Done: 12/27/23 19:28 Discharge Date/Time: 12/27/23 19:30
[2023-12-27 19:28] VITALS: BP 128/80; PULSE 81; RESP 18; TEMP 36.8; O2SAT 98
== END 2023-12-27 19:30 | disposition home or self-care (01) ==
PROVIDERS: Emergency Provider Internal Medicine; PCP Registered Nurse
DX: L03.311 Cellulitis of abdominal wall (principal)
CPT/HCPCS: 99282; 99283

== ENCOUNTER 2024-01-03 09:53 | Outpatient (REF) | payer OTHER, SELFPAY ==
[2024-01-03 14:24] LABS: MANUAL DIFF FLAG NO
[2024-01-03 14:38] LABS: Basophils Percent Auto 0.4 % (0-2); Eosinophils Absolute Auto 0.2 X10*3/uL (0.0-0.4); Eosinophils Percent Auto 2.2 % (0-4); Hematocrit 45.9 % (42.0-52.0); Hemoglobin 15.2 g/dl (14.0-18.0); Imm Gran Abs Auto 0.02 X10*3/uL (0.00-0.03); Imm Gran Pct Auto 0.3 % (0.0-0.4); Lymphocytes Absolute Auto 2.6 X10*3/uL (1.2-4.9); Lymphocytes Percent Auto 34.4 % (20-40); Mean Corpuscular HGB Conc 33.1 g/dl (31.0-36.0); Mean Corpuscular Volume 87.6 fL (80.0-98.0); Mean Platelet Volume 10.3 fL (9.4-12.4); Monocytes Absolute Auto 0.4 X10*3/uL (0.1-1.2); Monocytes Percent Auto 4.7 % (2-11); Neutrophils Absolute Auto 4.4 x10*3/uL (2.0-8.3); Platelet Count 274 X10*3/uL (160-400); Red Blood Count 5.24 X10*6/uL (4.60-5.80); Red Cell Distribution Width 12.7 % (11.0-16.0); White Blood Count 7.6 X10*3/uL (4.8-10.8)
[2024-01-03 14:39] LABS: Alanine Aminotransferase 22 U/L (0-40); Albumin Level 4.3 g/dL (3.5-5.0); Alkaline Phosphatase 75 U/L (39-117); Anion Gap 12 (12-20); Aspartate Amino Transferase 18 U/L (5-37); Bilirubin Total 0.9 mg/dL (0.0-1.0); Blood Urea Nitrogen 14 mg/dL (9-16); Calcium 9.6 mg/dL (8.4-10.2); Carbon Dioxide 24 mmol/L (22-29); Chloride 106 mmol/L (96-108); Cholesterol 197 mg/dL (<200); Estimated Glomerular Filt Rate > 60; Glucose Random 93 mg/dL (60-115); HDL Cholesterol 52 mg/dL (>40); LDL Cholesterol Calculated 124 mg/dL (<100); Potassium 4.1 mmol/L (3.3-5.1); Sodium 138 mmol/L (135-145); Total Protein 7.7 g/dL (6.5-8.0); Triglycerides 106 mg/dL (<150)
== END 2024-01-03 09:54 | disposition home or self-care (01) ==
LOC: HO.CHCLDS 09:53
PROVIDERS: Visit Provider Internal Medicine
DX: Z13.6 Encounter for screening for cardiovascular disorders (principal); L70.8 Other acne
CPT/HCPCS: 36415; 80053; 80061; 85025

== ENCOUNTER 2024-05-18 18:14 | Emergency (ER) | payer OTHER, SELFPAY ==
--- NOTE | ~2024-05-18 | US_ITS ---
EXAMINATION: US VENOUS ULTRASOUND WITH DOPPLER LOWER EXTREMITY, BILATERAL CLINICAL INFORMATION: Bilateral leg pain COMPARISON: None available. TECHNIQUE: Ultrasound of the deep veins is performed from the hip to the calf with compression sonography and color and pulse Doppler assessment. Spectral analysis with color-flow imaging is performed. FINDINGS: Bilateral leg pain RIGHT: There is normal venous compression and respiratory variation and augmented flow. The visualized common femoral vein, superficial femoral vein, profunda femoral vein, popliteal vein, and the trifurcation region shows no evidence of deep venous thrombosis. There is no significant popliteal fossa cyst. LEFT: There is normal venous compression and respiratory variation and augmented flow. The visualized common femoral vein, superficial femoral vein, profunda femoral vein, popliteal vein, and the trifurcation region shows no evidence of deep venous thrombosis. There is no significant popliteal fossa cyst. If the patient's symptoms persist, followup ultrasound in 5 days 7 days might be of value to exclude proximal propagation from a non-visualized calf vein. US/US venous duplex LE BI IMPRESSION: No DVT demonstrated in the right and left lower extremity.
[2024-05-18 18:22] VITALS: BP 124/70; PULSE 85; RESP 18; TEMP 36.4; O2SAT 96; BMI 47.1
--- NOTE | 2024-05-18 19:37 | ED.GENADULT ---
HPI - General Adult General Chief complaint: Extremity Problem Stated complaint: bilateral pedal swelling Time Seen by Provider: 05/19/24 01:21 Source: patient Limitations: no limitations History of Present Illness HPI narrative: 29-year-old male presents for evaluation of lower extremity edema. Patient states he just returned from an 18 hour car ride from [place]. During this time he was in the back seat of the vehicle. He does report getting out several times spent much of his time cramped in the back of the vehicle. Upon exiting he noticed his legs were swollen. He denies any history of similar symptoms. He is not currently on any medications denies any past medical history. He denies any pain. No fevers chills nausea vomiting. No chest pain or shortness of breath. He has not tried any medication for this. He denies any tobacco, alcohol or illicit drug abuse. In addition, patient has recurrent lesion to the left side of his chest. Patient states that this has been there for quite some time however over the past 3-4 days he has noticed increased redness as well as increasing in size. He denies any fevers or chills. He does report redness to the area. It is mildly tender. He has had other similar lesions throughout his body. Related Data Previous Rx's ?Medication ?Instructions ?Recorded amoxicillin 875 mg-potassium 1 tab PO BID #20 tabs 02/19/21 clavulanate 125 mg tablet (Augmentin) pantoprazole 40 mg tablet,delayed 40 mg PO DAILY #20 tabs 04/23/21 release (Protonix) dexamethasone 6 mg tablet 6 mg PO DAILY #7 tabs 05/13/21 (Decadron) amoxicillin 500 mg capsule 500 mg PO BID 10 days #20 caps 07/18/21 albuterol sulfate 90 mcg/actuation 1 inh inhalation QID PRN shortness 07/23/21 aerosol inhaler of breath or wheezing #8.5 grams bacitracin zinc 500 unit/gram 1 appl topical 5XD #113 grams 02/04/23 topical ointment ibuprofen 600 mg tablet 600 mg PO TID PRN fever or pain 02/04/23 #20 tabs oxycodone 5 mg tablet 5 mg PO TID PRN pain #7 tabs 02/04/23 ibuprofen 600 mg tablet 600 mg PO Q6H PRN fever or pain 08/24/23 #30 tabs cephalexin 250 mg capsule 250 mg PO QID 7 days #28 caps 12/27/23 doxycycline hyclate 100 mg capsule 100 mg PO BID #14 caps 12/27/23 ibuprofen 600 mg tablet 600 mg PO Q6H PRN pain #30 tabs 12/27/23 doxycycline hyclate 100 mg tablet 100 mg PO BID 10 days #20 tabs 05/19/24 Allergies Allergy/AdvReac Type Severity Reaction Status Date / Time No Known Allergies Allergy Verified 05/18/24 18:27 Review of Systems Constitutional: Constitutional: Denies chills and Denies fever(s) Cardiovascular: Cardiovascular: Denies chest pain, Denies palpitations, Denies dyspnea, Denies dyspnea on exertion and Denies orthopnea Respiratory: Respiratory: Denies cough, Denies dyspnea and Denies dyspnea on exertion Gastrointestinal: Gastrointestinal: Denies abdominal pain, Denies melena, Denies hematochezia, Denies diarrhea, Denies nausea and Denies vomiting Genitourinary: Genitourinary: Denies difficulty urinating, Denies dysuria and Denies urinary urgency Musculoskeletal: Musculoskeletal: Denies back pain, Denies muscle weakness and Denies numbness Neurologic: Denies focal weakness and Denies numbness Psychiatric: Psychiatric: Denies depression Endocrine: Endocrine: Denies palpitations COUNT INCLUDES THE [facility] Past Medical History Attestation statement: The following information was validated with the patient. COUNT INCLUDES THE [facility] Narrative: Denies past medical history Medical History No known health problems Social History Social History Alcohol intake: never Patient Tobacco Use Status: Never used Tobacco Advance Directives: No Advance Directives Information Provided: No Do you have a plan to hurt others: No Plan Physical Exam ED Vital Signs: Vital Signs - 24 hr 05/18/24 18:22 Temperature 97.5 F Pulse Rate 85 Respiratory Rate 18 Blood Pressure 124/70 Pulse Oximetry 96 Oxygen Delivery Method Room Air BMI result Body Mass Index 47.1 Const General: cooperative, alert and awake Resp Auscultation: clear to auscultation bilaterally Cardio Rate: regular rate Rhythm: regular rhythm Skin Other: There is a 1 cm soft, mildly tender papule just under the left breast. There is erythema extending superiorly toward this. There is no active discharge or streaking. No induration. Several additional erythematous tiny papules, surrounding hair follicles on the patient's abdomen and trunk, no evidence of drainable abscess. Extrem Other: Trace to +1 nonpitting edema to the feet and ankles bilaterally. There is no calf tenderness bilaterally. Course Course Course Narrative: This is an RME: Additional HPI, ROS, PE not included below will be deferred to primary provider. RME assessment and note performed by: Mary Jose PA-C This is a 29-year-old male who presents emergency department complaints of bilateral leg swelling. Patient just got back from a [address] from [place] and now has bilateral pedal edema. Pain from his hips all the way down to his feet. No history of blood clots. No chest pain or shortness for breath. No dizziness. 2+ pitting edema noted bilaterally, no calf tenderness. Plan: Labs, ultrasound, further ER evaluation needed. Medical Decision Making Medical Decision Making [facility] Narrative: 29-year-old male who denies significant past medical history with bilateral lower extremity edema after a prolonged car ride from [place] today. Patient is hemodynamically stable. He is afebrile. No history of similar symptoms. Labs are within normal ranges. Suspect dependent edema given his prolonged car ride. No evidence of DVT on ultrasound. In addition, soft tissue lesion to the left chest. Needle aspiration with small amount of fluid. Patient will be placed on antibiotics and referral to surgery. Patient also requesting referral to Dermatology. Patient will need antibiotic course and definitive treatment from surgical intervention. Reviewed all discharge instructions. No further questions at this time. Differential Diagnosis Differential Diagnoses: The differential diagnosis associated with the presentation includes Dependent edema DVT Metabolic abnormality Anemia Cellulitis Abscess Sebaceous cyst Folliculitis Hidradenitis Lab Data [facility] Lab Attestation statement: I reviewed the patient's lab results. 05/18/24 19:48 05/18/24 19:48 Labs: Lab Results 05/18/24 Range/Units 19:48 WBC 10.5 (4.8-10.8) X10*3/uL RBC 5.12 (4.60-5.80) X10*6/uL Hgb 14.9 (14.0-18.0) g/dl Hct 45.0 (42.0-52.0) % MCV 87.9 (80.0-98.0) fL MCH 29.1 (27.0-33.0) pg MCHC 33.1 (31.0-36.0) g/dl RDW 12.6 (11.0-16.0) % Plt Count 236 (160-400) X10*3/uL MPV 9.9 (9.4-12.4) fL Immature Gran % (Auto) 0.4 (0.0-0.4) % Neut % (Auto) 64.8 (45-73) % Lymph % (Auto) 27.4 (20-40) % [place] % (Auto) 4.7 (2-11) % Eos % (Auto) 2.4 (0-4) % Baso % (Auto) 0.3 (0-2) % Lymph # (Auto) 2.9 (1.2-4.9) X10*3/uL [place] # (Auto) 0.5 (0.1-1.2) X10*3/uL Eos # (Auto) 0.3 (0.0-0.4) X10*3/uL Baso # (Auto) 0.0 (0.0-0.2) X10*3/uL Abs Immat Gran (auto) 0.04 H (0.00-0.03) X10*3/uL Absolute Neuts (auto) 6.8 (2.0-8.3) x10*3/uL Absolute Nucleated RBC 0.000 (0.0-0.012) X10*3/uL Nucleated RBC % (auto) 0.0 (0.0-0.2) /100WBC Sodium 141 (135-145) mmol/L Potassium 3.7 (3.3-5.1) mmol/L Chloride 104 (96-108) mmol/L Carbon Dioxide 27 (22-29) mmol/L Anion Gap 14 (12-20) BUN 12 (9-16) mg/dL Creatinine 1.00 (0.5-1.4) mg/dL Estim Creat Clear Calc 168.9 Estimated GFR > 60 Random Glucose 98 (60-115) mg/dL Calcium 9.9 (8.4-10.2) mg/dL Total Bilirubin 0.5 (0.0-1.0) mg/dL Direct Bilirubin 0.1 (0.0-0.5) mg/dL AST 14 (5-37) U/L ALT 19 (0-40) U/L Alkaline Phosphatase 86 (39-117) U/L Troponin I High Sens < 2.7 (<3.5-35.0) ng/L B-Natriuretic Peptide < 10 (<100) pg/mL Total Protein 8.1 H (6.5-8.0) g/dL Albumin 4.5 (3.5-5.0) g/dL Radiology Impression Discussion of test interpretation with radiology: I have reviewed the radiologist's reading. Radiologist Impression: [address] [id number] Ultrasound Report Signed Patient: Gilmar Brush Jr MR#: [id number] : 1995 Acct:[id number] Age/Sex: 29 / M ADM Date: 05/18/24 Loc: .ED Attending Dr: Ordering Physician: Mary Jose Date of Service: 05/18/24 Procedure(s): US venous duplex LE BI Accession Number(s): [id number] cc: Mary Jose; Alice Barbour~ EXAMINATION: US VENOUS ULTRASOUND WITH DOPPLER LOWER EXTREMITY, BILATERAL CLINICAL INFORMATION: Bilateral leg pain COMPARISON: None available. TECHNIQUE: Ultrasound of the deep veins is performed from the hip to the calf with compression sonography and color and pulse Doppler assessment. Spectral analysis with color-flow imaging is performed. FINDINGS: Bilateral leg pain RIGHT: There is normal venous compression and respiratory variation and augmented flow. The visualized common femoral vein, superficial femoral vein, profunda femoral vein, popliteal vein, and the trifurcation region shows no evidence of deep venous thrombosis. There is no significant popliteal fossa cyst. LEFT: There is normal venous compression and respiratory variation and augmented flow. The visualized common femoral vein, superficial femoral vein, profunda femoral vein, popliteal vein, and the trifurcation region shows no evidence of deep venous thrombosis. There is no significant popliteal fossa cyst. If the patient's symptoms persist, followup ultrasound in 5 days 7 days might be of value to exclude proximal propagation from a non-visualized calf vein. US/US venous duplex LE BI IMPRESSION: No DVT demonstrated in the right and left lower extremity. Dictated By: Omar Boyd MD Signed By: <Electronically signed by Omar Boyd MD in OV> 05/18/241953 DD/ 08 TD/TT: [employer]: DAVID Prescription Management I considered prescription management with: Antibiotic Discharge Plan Discharge Clinical Impression: Dependent edema Cellulitis Qualifiers: Site of cellulitis: trunk Patient Disposition: Home, Self-Care Instructions: Cellulitis (ED), Leg Edema (ED) Additional Instructions: Rest. Elevate your legs. Avoid strenuous activity. Avoid foods high in salt. Doxycycline as directed. Finish all antibiotics. Warm compresses to the affected area on your chest. Follow-up with surgical referral; Dr. Castro. Call to schedule follow up appointment. Follow-up with dermatology referral. [facility]. Call to schedule follow up appointment [phone] Follow-up with your primary care provider. Call this week to schedule a follow-up appointment. Return to the emergency department if you have any worsening of symptoms, or any concerns. Get well soon! Prescriptions: New doxycycline hyclate 100 mg tablet 100 mg PO BID 10 Days Qty: 20 0RF No Action amoxicillin-pot clavulanate [Augmentin] 875-125 mg tablet 1 tab PO BID Qty: 20 0RF pantoprazole [Protonix] 40 mg tablet,delayed release (DR/EC) 40 mg PO DAILY Qty: 20 0RF dexamethasone [Decadron] 6 mg tablet 6 mg PO DAILY Qty: 7 0RF amoxicillin 500 mg capsule 500 mg PO BID 10 Days Qty: 20 0RF albuterol sulfate 90 mcg/actuation HFA aerosol inhaler 1 inh inhalation QID PRN (Reason: shortness of breath or wheezing) Qty: 8.5 0RF ibuprofen 600 mg tablet 600 mg PO Q6H PRN (Reason: fever or pain) Qty: 30 0RF oxycodone 5 mg tablet 5 mg PO TID PRN (Reason: pain) Qty: 7 0RF Rx Instructions: Partial Fill upon patient request. bacitracin zinc 500 unit/gram ointment 1 appl topical 5XD Qty: 113 0RF ibuprofen 600 mg tablet 600 mg PO TID PRN (Reason: fever or pain) Qty: 20 0RF doxycycline hyclate 100 mg capsule 100 mg PO BID Qty: 14 0RF cephalexin 250 mg capsule 250 mg PO QID 7 Days Qty: 28 0RF ibuprofen 600 mg tablet 600 mg PO Q6H PRN (Reason: pain) Qty: 30 0RF Referrals: Francisco Javier Castro MD [Physician] - (Recurrent cutaneous abscess/hidradenitis) Print Language: Tongan
[2024-05-18 19:52] LABS: MANUAL DIFF FLAG NO
--- NOTE | 2024-05-18 19:52 | MHC.EDTECH ---
This tech performed venipuncture on patient. Patient requested hand draw due to going black if he is drawn in [facility]. This tech attempted x2. Was able to obtain sample from right hand. Patient lips white during draw. This tech elevated patient legs and had patient sit until he felt well enough to go to the waiting room.
[2024-05-18 20:12] LABS: Alanine Aminotransferase 19 U/L (0-40); Albumin Level 4.5 g/dL (3.5-5.0); Alkaline Phosphatase 86 U/L (39-117); Anion Gap 14 (12-20); Aspartate Amino Transferase 14 U/L (5-37); Bilirubin Direct 0.1 mg/dL (0.0-0.5); Bilirubin Total 0.5 mg/dL (0.0-1.0); Blood Urea Nitrogen 12 mg/dL (9-16); Calcium 9.9 mg/dL (8.4-10.2); Carbon Dioxide 27 mmol/L (22-29); Chloride 104 mmol/L (96-108); Creatinine Clr Calc Pharmacy 168.9; Estimated Glomerular Filt Rate > 60; Glucose Random 98 mg/dL (60-115); Potassium 3.7 mmol/L (3.3-5.1); Sodium 141 mmol/L (135-145); Total Protein 8.1 g/dL (6.5-8.0)
[2024-05-18 20:13] LABS: Basophils Percent Auto 0.3 % (0-2); Eosinophils Absolute Auto 0.3 X10*3/uL (0.0-0.4); Eosinophils Percent Auto 2.4 % (0-4); Hemoglobin 14.9 g/dl (14.0-18.0); Imm Gran Abs Auto 0.04 X10*3/uL (0.00-0.03); Imm Gran Pct Auto 0.4 % (0.0-0.4); Lymphocytes Absolute Auto 2.9 X10*3/uL (1.2-4.9); Lymphocytes Percent Auto 27.4 % (20-40); Mean Corpuscular HGB Conc 33.1 g/dl (31.0-36.0); Mean Corpuscular Hemoglobin 29.1 pg (27.0-33.0); Mean Corpuscular Volume 87.9 fL (80.0-98.0); Mean Platelet Volume 9.9 fL (9.4-12.4); Monocytes Absolute Auto 0.5 X10*3/uL (0.1-1.2); Monocytes Percent Auto 4.7 % (2-11); Neutrophils Absolute Auto 6.8 x10*3/uL (2.0-8.3); Neutrophils Percent Auto 64.8 % (45-73); Platelet Count 236 X10*3/uL (160-400); Red Blood Count 5.12 X10*6/uL (4.60-5.80); Red Cell Distribution Width 12.6 % (11.0-16.0); White Blood Count 10.5 X10*3/uL (4.8-10.8)
[2024-05-18 20:15] LABS: B Type Natriuretic Peptide < 10 pg/mL (<100)
[2024-05-18 20:21] LABS: Troponin-I High Sensitivity < 2.7 ng/L (<3.5-35.0)
[2024-05-19 01:59] VITALS: BP 120/80; PULSE 76; RESP 18; TEMP 36.3; O2SAT 98
[2024-05-19 02:01] VITALS: BP 120/80; PULSE 76; RESP 18; TEMP 36.3; O2SAT 98
== END 2024-05-19 02:02 | disposition home or self-care (01) ==
PROVIDERS: Physician Assistant Medical; Emergency Provider Emergency Medicine Emergency Medical Services; PCP Registered Nurse
DX: R60.0 Localized edema (principal); L03.313 Cellulitis of chest wall; M79.605 Pain in left leg; M79.604 Pain in right leg
CPT/HCPCS: 10160; 36415; 80048; 80076; 83880; 84484; 85025; 93970; 99284

== ENCOUNTER 2024-07-24 08:28 | Outpatient (REF) | payer OTHER, SELFPAY ==
[2024-07-24 11:25] LABS: MANUAL DIFF FLAG NO
[2024-07-24 11:27] LABS: Basophils Percent Auto 0.3 % (0-2); Eosinophils Absolute Auto 0.2 X10*3/uL (0.0-0.4); Eosinophils Percent Auto 3.2 % (0-4); Hematocrit 46.3 % (42.0-52.0); Hemoglobin 15.4 g/dl (14.0-18.0); Imm Gran Abs Auto 0.02 X10*3/uL (0.00-0.03); Imm Gran Pct Auto 0.3 % (0.0-0.4); Lymphocytes Absolute Auto 2.1 X10*3/uL (1.2-4.9); Lymphocytes Percent Auto 33.6 % (20-40); Mean Corpuscular HGB Conc 33.3 g/dl (31.0-36.0); Mean Corpuscular Hemoglobin 28.6 pg (27.0-33.0); Mean Corpuscular Volume 85.9 fL (80.0-98.0); Mean Platelet Volume 10.4 fL (9.4-12.4); Monocytes Absolute Auto 0.3 X10*3/uL (0.1-1.2); Monocytes Percent Auto 4.5 % (2-11); Neutrophils Absolute Auto 3.7 x10*3/uL (2.0-8.3); Neutrophils Percent Auto 58.1 % (45-73); Platelet Count 244 X10*3/uL (160-400); Red Blood Count 5.39 X10*6/uL (4.60-5.80); Red Cell Distribution Width 12.4 % (11.0-16.0); White Blood Count 6.3 X10*3/uL (4.8-10.8)
[2024-07-24 11:53] LABS: Estimated Average Glucose 105 mg/dL; Hemoglobin A1C 131.0822 umol/L; Hemoglobin A1c % 5.3 % (<6.0); Total Hemoglobin (HGBA1C) 3808.5643 umol/L
[2024-07-24 12:09] LABS: HIV AB/AG Nonreactive (Nonreactive); HIV Num 1 0.05 S/CO (0.00-0.99)
[2024-07-24 12:15] LABS: Alanine Aminotransferase 22 U/L (0-40); Albumin Level 4.2 g/dL (3.5-5.0); Alkaline Phosphatase 59 U/L (39-117); Anion Gap 13 (12-20); Aspartate Amino Transferase 15 U/L (5-37); Bilirubin Total 0.7 mg/dL (0.0-1.0); Blood Urea Nitrogen 12 mg/dL (9-16); Calcium 9.3 mg/dL (8.4-10.2); Carbon Dioxide 24 mmol/L (22-29); Chloride 107 mmol/L (96-108); Cholesterol 148 mg/dL (<200); Estimated Glomerular Filt Rate > 60; Glucose Random 111 mg/dL (60-115); HDL Cholesterol 37 mg/dL (>40); LDL Cholesterol Calculated 89 mg/dL (<100); Potassium 4.5 mmol/L (3.3-5.1); Sodium 139 mmol/L (135-145); Total Protein 7.4 g/dL (6.5-8.0); Triglycerides 111 mg/dL (<150)
[2024-07-24 12:17] LABS: TSH reflex Free T4 2.54 uIU/mL (0.32-4.0)
[2024-07-24 13:48] LABS: CT PCR NOT DETECTED (Not Detect.); NG PCR NOT DETECTED (Not Detect.)
[2024-07-25 16:54] LABS: HCV Log PCR <1.18 NOT DETECTED Log IU/mL (NOT DETECTED); HepC Viral Load <15 NOT DETECTED IU/mL (NOT DETECTED)
[2024-07-26 11:04] LABS: RPR Rapid Plasma Reagin NON-REACTIVE (NON-REACTIVE)
== END 2024-07-24 08:29 | disposition home or self-care (01) ==
LOC: HO.HHCL 08:28
PROVIDERS: Visit Provider Registered Nurse
DX: Z00.00 Encounter for general adult medical examination without abnormal findings (principal); Z13.1 Encounter for screening for diabetes mellitus
CPT/HCPCS: 36415; 80053; 80061; 83036; 84443; 85025; 86592; 87389; 87491; 87522; 87591

== ENCOUNTER 2024-11-16 21:55 | Emergency (ER) | payer OTHER, SELFPAY ==
[2024-11-16 22:12] VITALS: BP 126/63; PULSE 111; RESP 16; TEMP 36.1; O2SAT 96; BMI 47.0
--- OUTSIDE RECORDS SUMMARY | 2024-11-17 01:53 | XMS_ITS | Clinical Summary ---
Author Organization [employer] Address [address] [facility] 7t [place] [address] Care Team Providers Care Belting And Webbing Inspector Name Role Phone Alice Barbour Primary Care Provider [phone] Kunal Wilks Unavailable Unavailable Allergies No known active allergies Medications * This document contains information received from the source organization and may not represent a complete record from that organization. Ventolin HFA 108 (90 Base) MCG/ACT inhalerIndicati ons:Mild persistent asthma without complication Inhale 2 puffs every 4 (four) hours if needed for wheezing or shortness of breath. 18 g 3 11/25/19 23 Active cetirizine (ZyrTEC) 10 MG tablet Take 10 mg by mouth in the morning. 04/22/20 22 Active budesonide-form oterol (Symbicort) 160-4.5 MCG/ACT inhaler Inhale 1 puff in the morning and at bedtime. Rinse mouth with water after use to reduce aftertaste and incidence of candidiasis. Do not swallow. 10.2 g 11 03/29/20 23 Active minocycline 100 MG capsuleIndicati ons:Other acne Take 1 capsule (100 mg) by mouth 2 times daily. 60 capsule 3 12/09/19 24 Active ARIPiprazole (Abilify) 5 MG tabletIndicatio ns:Mood disorder (CMS/HCC) Take 1 tablet (5 mg) by mouth Once daily. 90 tablet 3 02/16/20 24 Active doxepin (SINEquan) 10 MG capsuleIndicati ons:Mood disorder (CMS/HCC) Take 1 capsule (10 mg) by mouth at bedtime. 90 capsule 3 02/16/20 24 Active FLUoxetine (PROzac) 20 MG capsuleIndicati ons:Mood disorder (CMS/HCC) Take 1 capsule (20 mg) by mouth Once daily. 90 capsule 3 02/16/20 24 Active hydrOXYzine HCl (Atarax) 25 MG tabletIndicatio ns:Mood disorder (CMS/HCC) TAKE 1 TO 2 TABLETS BY MOUTH AT BEDTIME NEEDED ANXIETY OR FOR SLEEP 180 tablet 3 02/16/20 24 Active prazosin (Minipress) 1 MG capsule Take 1 capsule (1 mg) by mouth at bedtime. 90 capsule 3 02/16/20 24 Active cyclobenzaprine (Flexeril) 5 MG tabletIndicatio ns:Muscle spasm Take 1-2 tablets (5-10 mg) by mouth if needed at bedtime for muscle spasms. 40 tablet 3 09/03/20 24 025 Active minocycline 100 MG capsuleIndicati ons:Folliculiti s Take 1 capsule (100 mg) by mouth 2 times daily. 60 capsule 2 10/16/19 25 025 Active Tirzepatide-Lalo ght Management (Zepbound) 2.5 MG/0.5ML solution auto-injectorIn dications:Class 3 severe obesity due to excess calories without serious comorbidity with body mass index (BMI) of 40.0 to 44.9 in adult (CMS/HCC) Inject 0.5 mL (2.5 mg) under the skin 1 (one) time per week. 2 mL 1 10/16/19 25 Active clindamycin (Clindagel) 1 % gelIndications: Folliculitis Apply topically Once per day. 60 g 2 10/31/19 25 026 Active benzoyl peroxide (PanOxyl Foaming Wash) 10 % external washIndications :Folliculitis Apply topically 2 times daily. 227 g 10/31/19 25 026 Active clindamycin (Clindagel) 1 % gelIndications: Folliculitis Apply topically Once per day. 60 g 2 10/16/19 25 025 Discontinued(R eorder (will not trigger notification to Pharmacy)) benzoyl peroxide (PanOxyl Foaming Wash) 10 % external washIndications :Folliculitis Apply topically 2 times daily. 227 g 11 01/07/ 025 Discontinued(R eorder (will not trigger notification to Pharmacy)) Active Problems Problem Noted Date Diagnosed Date Obstructive sleep apnea 07/26/2024 Overview (09/10/2024): Jul 2023 sleep study that demonstrated severe JOHNNY Recommended: autoCPAP 8-20cm H2m w/ humification and F20 full face mask DME request placed 11/14/23 DME request re-submitted 09/10/24 Other acne 07/26/2024 Assessment & Plan (07/26/2024 6:40 PM EDT): - Following with [facility] Derm team with plan to start isotretinoin in December 2023. Delayed start given difficulties with med filler picker from pharmacy - Message sent to derm team to assist with rescheduling on 07/26/24 Mood disorder 10/05/2022 Assessment & Plan (02/16/2024 5:24 PM EDT): Reports depressive symptoms began with of his mother when he was 13 yrs old. Has been assigned Dx of BPD by [employer] service department manager. With episodic irritability rather than hypomania, alternating with depression. Has tolerated antidepressants without mood instability. Hx previously suicide attempts during adolescence, presented with SI ( but no intent). Presented with racing thoughts, feelings of impending doom, but no hallucinations. Had been stable and doing well, depression worsened with the of his father October of 2023, with intermittent passive SI, which has since resolved. Does have supportive relationship with . Again doing well, sleeping well, mood is stable. He will continue current medications: Prazosin 1 mg at bedtime for nightmares, Doxepin 10 mg at bedtime, Abilify 5 mg once daily, Fluoxetine 20 mg daily. He will F/U for counseling when available. Since this provider will be retiring, he will be referred to new prescriber once available. Meanwhile, for any issues or concerns contact the health center. All his questions were answered. I have wished him well. He agrees with the plan. Assessment & Plan (01/02/2024 2:29 PM EDT): Reports depressive symptoms began with of his mother when he was 13 yrs old. Has been assigned Dx of BPD by [employer] service department manager. With episodic irritability rather than hypomania, alternating with depression. Has tolerated antidepressants without mood instability. Hx previously suicide attempts during adolescence, presented with SI ( but no intent). Presented with racing thoughts, feelings of impending doom, but no hallucinations. Had been stable and doing well, depression worsened with the of his father October of 2023, with intermittent passive SI, which has since resolved. Does have supportive relationship with . Starting to do a little better with sleep, nightmares improved. he has been very depressed with intermittent SI (not currently). Continue current medications: Prazosin 1 mg at bedtime for nightmares, Doxepin 10 mg at bedtime, Abilify 5 mg once daily, Fluoxetine 20 mg daily. He was referred for counseling and I have given him the phone number to call and F/U. On 09/05/2023 provider informed the pt that I would be retiring within the next year or so, but we would make every effort to ensure continuity of care. F/U with me in 6 weeks. He agrees with the plan. Assessment & Plan (12/05/2023 2:33 PM EST): Reports depressive symptoms began with of his mother when he was 13 yrs old. Has been assigned Dx of BPD by [employer] service department manager. With episodic irritability rather than hypomania, alternating with depression. Has tolerated antidepressants without mood instability. Hx previously suicide attempts during adolescence, presented with SI ( but no intent). Presented with racing thoughts, feelings of impending doom, but no hallucinations. Had been stable and doing well, but since his father in October of 2023 he has been very depressed with intermittent SI (not currently). Not sleeping well, having nightmares. Does have supportive relationship with . Will request Integrated clinician call for a BE. Also referring for OP therapy. Will add Prazosin 1 mg at bedtime for nightmares. No hallucinations so increasing antipsychotic would not be first choice. Continue Doxepin 10 mg at bedtime, Abilify 5 mg once daily, Fluoxetine 20 mg daily. On 09/05/2023 provider informed the pt that I would be retiring within the next year or so, but we would make every effort to ensure continuity of care. F/U with me in 3-4 weeks. He agrees with the plan. Assessment & Plan (09/05/2023 5:13 PM EST): Reports depressive symptoms began with of his mother when he was 13 yrs old. Has been assigned Dx of BPD by [employer] service department manager. With episodic irritability rather than hypomania, alternating with depression. Has tolerated antidepressants without mood instability. Hx previously suicide attempts during adolescence, presented with SI ( but no intent). Presented with racing thoughts, feelings of impending doom, but no hallucinations. Doing very well. Continue Doxepin 10 mg at bedtime, Abilify 5 mg once daily, Fluoxetine 20 mg daily. Today 09/05/2023 provider informed the pt that I would be retiring within the next year or so, but we would make every effort to ensure continuity of care. F/U with me in 3 months. He agrees with the plan. Assessment & Plan (06/06/2023 10:22 AM EDT): Reports depressive symptoms began with of his mother when he was 13 yrs old. Has been assigned Dx of BPD by [employer] service department manager. With episodic irritability rather than hypomania, alternating with depression. Has tolerating antidepressants without mood instability. Hx previously suicide attempts during adolescence, presented with SI ( but no intent). Presented with racing thoughts, feelings of impending doom, but no hallucinations. Doing very well. Continue Doxepin 10 mg at bedtime, Abilify 5 mg once daily, Fluoxetine 20 mg daily. F/U with me in 3 months. He agrees with the plan. Assessment & Plan (03/03/2023 1:19 PM EDT): Reports depressive symptoms began with of his mother when he was 13 yrs old. Has been assigned Dx of BPD by [employer] service department manager. With episodic irritability rather than hypomania, alternating with depression. Has tolerating antidepressants without mood instability. Hx previously suicide attempts during adolescence, presented with SI ( but no intent). Presented with racing thoughts, feelings of impending doom, but no hallucinations. Doing very well. Continue Doxepin 10 mg at bedtime, Abilify 5 mg once daily, Fluoxetine 20 mg daily. F/U with me in 3 months. He agrees with the plan. Assessment & Plan (12/14/2022 10:16 AM EST): Reports depressive symptoms began with of his mother when he was 13 yrs old. Has been assigned Dx of BPD by [employer] service department manager. With episodic irritability rather than hypomania, alternating with depression. Tolerating Fluoxetine 20 mg without mood instability. Hx previously suicide attempts during adolescence, presented with SI ( but no intent). Racing thoughts, feelings of impending doom, but no hallucinations. Still doing well, but having difficulty falling asleep. Will add Doxepin 10 mg at bedtime. May also take Hydroxyzine 25 or 50 mg at bedtime. Continue Abilify 5 mg once daily, Fluoxetine 20 mg daily. F/U with me in 2 months. He agrees with the plan. Assessment & Plan (11/28/2022 4:28 PM EST): -Established with [facility] Psychopharm clinic - JAGRUTI Wilks -Continue with current med regimen: ?? Abilify 5mg daily ?? Fluoxetine 20mg daily ?? Hydroxyzine 25-50mg nightly PRN insomnia -Denies SI/HI/thoughts of self harm -Reports mood is good, but continues with difficulty sleeping. Interested in dose adjustment of hydroxyzine, message sent to JAGRUTI Wilks. Assessment & Plan (10/05/2022 2:16 PM EST): Reports depressive symptoms began with of his mother when he was 13 yrs old. Has been assigned Dx of BPD by [employer] service department manager. With episodic irritability rather than hypomania, alternating with depression. Hx previously suicide attempts during adolescence, presented with SI ( but no intent). Racing thoughts, feelings of impending doom, but no hallucinations. Doing very well. Sleeping well with Hydroxyzine. Mood is improved, will continue Abilify 5 mg once daily, Fluoxetine 20 mg daily. F/U with me in 2 months. He agrees with the plan. Insomnia 05/19/2022 Mild persistent asthma 04/09/2022 Assessment & Plan (04/08/2023 6:49 PM EDT): ?? Reports that new brand of albuterol feels less effective ?? Encouraged to call local pharmacies to see if they have previous brand in stock ?? Will switch to Symbicort for maintenance and reliever per [facility] guidelines ?? Reviewed importance of rinsing mouth after each use Assessment & Plan (11/28/2022 4:35 PM EST): Follow up in 3 months for chronic conditions, sooner PRN Major depressive disorder 09/08/2021 Posttraumatic stress disorder 09/08/2021 Attention deficit hyperactivity disorder 012 Resolved Problems Problem Noted Date Diagnosed Date Resolved Date Obesity 07/12/2012 07/26/2024 Encounters Date Type Department Care Team Description 10/31/2024 Orders Only [facility] [address] [place] [address] Gracy Murray MD Folliculitis 10/16/2024 9:30 AM EST Office Visit [facility] [address] [place] [address] Gracy Murray MD Folliculitis (Primary Dx); Dietary counseling; Exercise counseling; Class 3 severe obesity due to excess calories without serious comorbidity with body mass index (BMI) of 40.0 to 44.9 in adult ([facility]) 10/16/2024 Travel 09/04/2024 Telephone [facility] [address] [place] [address] Alice aBrbour FNP 09/03/2024 9:15 AM EST Office Visit [facility] [address] [place] [address] Alice Barbour FNP Obstructive sleep apnea (Primary Dx); Muscle spasm; Upper back pain 09/03/2024 Travel from Last 3 Months Immunizations Name Administration Dates Next Due DTaP 03/29/2000, 7,01/12/1996,08/08,1995 HPV, Quadrivalent 07/12/2012,07/09/2011,06/30/20 10 Hep A, ped/adol, 2 dose 06/30/2010 Hep B, Adolescent or Pediatric 01/12/1996,1994,1995 Hib (HbOC) 08/15/1997, 6,1995,06/07 IPV 03/29/2000, 6,1995,06/07 Influenza injectable quadriv alent IIV4 with preservative 06/23/2018 Influenza injectable quadriv alent preservative free 11/03/2015 Influenza, IIV3, injectable 07/09/2011, 0 Influenza, Split (incl. jace fied surface antigen) 07/12/2012 Influenza, seasonal, injecta ble, preservative free 07/20/2024 MMR 03/20/1999,10/25/1996 Meningococcal MCV4P ACYW-135 07/09/2011,08/08/20 06 Pfizer Covid-19 Vaccine 12+ 07/20/2024 Pneumococcal Conjugate PCV 20 07/20/2024 Tdap 02/05/2023,05/19/2022,08/08/2006 Varicella 06/30/2010,03/20/1999 Social History Tobacco Use Types Packs/Day Years Used Date Smoking Tobacco: Never Passive Smoke Exposure: Never Smokeless Tobacco: Never Tobacco Cessation:Counseling Given: Not Answered Alcohol Use Standard Drinks/Week Comments Never 0 (1 standard drink = 0.6 oz pur e alcohol) Depression Answer Date Recorded Patient Health Questionnaire-9 Score 5 01/02/2024 Patient Health Questionnaire-9 Score 5 01/02/2024 Last PHQ-9: Questionnaire Data Not on file 0 01/02/2024 Housing Stability Answer Date Recorded What is your housing situation today? I have tj pepe 07/20/[address] you li ve. Do you have problems with any of the following? None of the above 07/20/2024 Food Insecurity Answer Date Recorded Within the past 12 months, y ou worried that your food would run out before you got money to buy more: Never True 07/20/2024 Within the past 12 months,th e food you bought just didn't last and you didn't have enough money to get more: Never True 08/2024 Transportation Answer Date Recorded In the past 12 months, has l ack of transportation kept you from medical appts, meetings, work or from getting things needed for daily living? No 07/20/2024 Utilities Answer Date Recorded In the past 12 months, has t he electric, gas, oil or water company threatened to shut off services in your home? No 07/20/2024 Depression Answer Date Recorded Patient Health Questionnaire-2 Score 4 01/02/2024 Internet Access Answer Date Recorded Internet Access Q1 Yes 07/20/2024 Internet Access Q2 Not on file 07/20/2024 Sex and Gender Information Value Date Recorded Sex Assigned at Male 08/09/2022 10:17 AM EDT Legal Sex Male 10:17 AM EDT Gender Identity Male 08/09/2022 10:17 AM EDT Sexual Orientation Straight 08/09/2022 10 :17 AM EDT Last Filed Vital Signs Vital Sign Reading Time Taken Comments Blood Pressure 124/81 10/16/2024 9:42 AM EST Pulse 84 10/16/2024 9:42 AM EST Temperature 36.3 ??C (97.4 ??F) 10/16/2024 9:42 AM ES T Respiratory Rate 20 09/03/2024 9:24 AM EST Oxygen Saturation 98% 09/03/2024 9:24 AM EST Inhaled Oxygen Concentration - - Weight 150 kg (330 lb) 10/16/2024 9:42 AM EST Height 180 cm (5' 10.88 ) 09/03/2024 9:24 AM EST Body Mass Index 46.18 09/03/2024 9:24 AM EST Plan of Treatment Health Maintenance Due Date Last Done Comments Family Planning (PISQ) 2010 Hepatitis A Vaccines (2 of 2 - 2-dose series) 12/28/2010 06/30/2010 Depression Screening 01/01/2025 01/02/2024, 01/02/20 24 SDOH Screening 07/20/2025 07/20/2024 Alcohol/Substance Use Screening 09/03/2025 09/03/2024 Tobacco Screening 10/16/2025 10/16/2024 Lipid Panel 07/24/2029 07/24/2024, 12/09, 04/08/2022 DTaP/Tdap/Td Vaccines (9 - Td or Tdap) 02/05/2033 02/05/2023, 05/19/2022, 08/08/2006, Additional history exists Zoster Vaccines (1 of 2) 2045 RSV Patients and Patients Aged 60 years or older (1 - 1-dose 75+ series) 2070 Hepatitis B Vaccines Completed 01/12/1996, 1995, 1995 HIB Vaccines Completed 08/15/1997, 01/1996, 1995, Additional history exists IPV Vaccines Completed 03/29/2000, 03/1996, 1995, Additional history exists Meningococcal Vaccine Completed 07/09/2011, 006 HPV Vaccines Completed 07/12/2012, 06/12, 06/30/2010 COVID-19 Vaccine Completed 07/20/2024 Influenza Vaccine Completed 07/20/2024, , 11/03/2015, Additional history exists Pneumococcal Vaccine: Pediatrics (0 to 5 Years) and At-Risk Patients (6 to 49) Years) Completed 07/20/2024 HIV Screening Completed 07/24/2024 Hepatitis C Screening Completed 07/24/2024, 022 RSV under 20 months Aged Out No longe r eligible based on patient's age to complete this topic Rotavirus Vaccines Aged Out No longer eligible based on patient's age to complete this topic Procedures Procedure Name Priority Date/Time Associated Diagnosis Comments HEPATITIS C VIRAL RNA, QUANTITATIVE, REAL-TIME PCR Routine 07/24/2024 8:30 AM EDT Healthcare maintenance HIV 1/2 ANTIGEN/ANTIBODY, FOURTH GENERATION W/RFL Routine 07/24/2024 8:30 AM EDT Healthcare maintenance LIPID PANEL, STANDARD Routine 07/24/2024 8:30 AM EDT Healthcare maintenance from Last 3 Months or Most Recently Relevant to Health Maintenance Results * Hepatitis C Viral RNA, Quantitative, Real-Time PCR (07/24/2024 8:30 AM EDT) Hepatitis C Viral Load <15 NOT DETECTED NOT DETECTED IU/mL [facility] HCV Log PCR <1.18 NOT DETECTED NOT DETECTED Log IU/mL [facility] Comment:For additional infor jordan, please refer [email or web address].jaja.tv/faq/[email or web address](This link is being provided for informational/educational purposes only.)THIS TEST WAS PERFORMED AT:[facility] [place] [id number] CARREON MD Blood 07/24/2024 8:30 AM EDT 07/24/2024 11:11 AM EDT Alice Barbour [facility] BLOOD ORDERABLES Final Res ult [facility] [address] [place] [address] [phone] * HIV-1/2 Antigen and Antibodies, Fourth Generation, with Reflexes (07/24/2024 8:30 AM EDT) [facility] HIV AB/AG Nonreactive Nonreactive [facility] Comment:HIV-1 p24 Ag and/or HIV-1/HIV-2 Ab not detected.A test result that is nonreactive does not exclude thepossibility of exposure to or infection with HIV-1 and/orHIV-2. Nonreactive results in this assay for individualswith prior exposure to HIV-1 and/or HIV-2 may be due toantigen and antibody levels that are below the limit ofdetection of this assay.The [employer] HIV Ag/Ab Combo assay result andsupplemental assay results should be interpreted inconjunction with the patient's clinical presentation,history and other laboratory results. If the results areinconsistent with clinical evidence, additional testing issuggested to confirm the result. Blood Venous blood specimen / Unknown 07/24/2024 8:30 AM EDT 07/24/2024 11:11 AM EDT Aliceabraham Barbour [facility] BLOOD ORDERABLES Final Res ult [facility] [address] [place] [address] [phone] * (ABNORMAL) Lipid Panel, Standard (07/24/2024 8:30 AM EDT) Triglycerides 111 <150 mg/dL [facility] Comment:Desirable Triglyceri de: less than 150 mg/dLBorderline High Triglyceride 150-199 mg/dLHigh Triglyceride: 200-499 mg/dLVery High Triglyceride: greater than or equal to 5OO mg/dL Cholesterol 148 <200 mg/dL [facility] Comment:Desirable Cholestero l: less than 200 mg/dLBorderline High Cholesterol: 200-239 mg/dLHigh Cholesterol: greater than 239 mg/dL LDL Cholesterol Calculated 89 <100 mg/dL [facility] Comment:Desirable LDL: less than 100 mg/dLNear Optimal/Above Optimal LDL: 110- 129 mg/dLBorderline High LDL: 130-159 mg/dLHigh LDL: 160-189 mg/dLVery High LDL: greater than or equal to 190 mg/dL HDL Cholesterol 37(L) >40 mg/dL [facility] Comment:Desirable HDL: great er than 40 mg/dL Note: This HDL assay may give artificially low results in patients with liver disease. Blood Venous blood specimen / Unknown 07/24/2024 8:30 AM EDT 07/24/2024 11:11 AM EDT Alice Barbour GLUE DRIER OPERATOR LAB BLOOD ORDERABLES Final Res ult [facility] [address] [place] [phone] [phone] from Last 3 Months or Most Recently Relevant to Health Maintenance Insurance - [employer] [address] [address] Care Teams Belting And Webbing Inspector Relationship Specialty Start Date End Date Alice Barbour FNP [address] [place] [id number] PCP - General Family Medicine 08/04/21 Kunal Wilks FNP [address] [place] [address] Nurse Practitioner Family Medicine 08/29/23
--- OUTSIDE RECORDS SUMMARY | 2024-11-17 01:53 | XMS_ITS | Encounter Summary ---
Author Organization [employer] Address [address] [facility] [address] [place] [address] Care Team Providers Care Client Liaison Name Role Phone Alice Barbour LIVESTOCK YARD SUPERVISOR Primary Care Provider Kunal Wilks Unavailable Unavailable Encounter Details Date Type Department Care Team ([facility] st Contact Info) Description 04/10/2024 Orders Only [facility] [address] [place], [place] [phone] Gracy Murray MD [address] [place] [address] Other acne (Primary Dx) Social History Tobacco Use Types Packs/Day Years Used Date Smoking Tobacco: Never Passive Smoke Exposure: Never Smokeless Tobacco: Never Alcohol Use Standard Drinks/Week Comments Never 0 (1 standard drink = 0.6 oz pur e alcohol) Depression Answer Date Recorded Patient Health Questionnaire-9 Score 5 01/02/2024 Patient Health Questionnaire-9 Score 5 01/02/2024 Last PHQ-9: Questionnaire Data Not on file 0 01/02/2024 Housing Stability Answer Date Recorded What is your housing situation today? I have tj pepe 08/05/[address] you li ve. Do you have problems with any of the following? None of the above 08/05/2023 Food Insecurity Answer Date Recorded Within the past 12 months, y ou worried that your food would run out before you got money to buy more: Never True 08/05/2023 Within the past 12 months,th e food you bought just didn't last and you didn't have enough money to get more: Never True Transportation Answer Date Recorded In the past 12 months, has l ack of transportation kept you from medical appts, meetings, work or from getting things needed for daily living? No 08/05/2023 Utilities Answer Date Recorded In the past 12 months, has t he electric, gas, oil or water company threatened to shut off services in your home? No 08/05/2023 Depression Answer Date Recorded Patient Health Questionnaire-2 Score 4 01/02/2024 Sex and Gender Information Value Date Recorded Sex Assigned at Male 08/09/2022 10:17 AM EDT Legal Sex Male 10:17 AM EDT Gender Identity Male 08/09/2022 10:17 AM EDT Sexual Orientation Straight 08/09/2022 10 :17 AM EDT documented as of this encounter Plan of Treatment Not on file documented as of this encounter Visit Diagnoses Diagnosis Other acne- Primary documented in this encounter Additional Health Concerns Assessment Noted Time PHQ-9 Depression Total Score: 5 01/02/20 24 1:42 PM EDT documented as of this encounter Care Teams Client Liaison Relationship Specialty Start Date End Date Alice Barbour FNP [address] [place] [address] PCP - General Family Medicine 08/04/21 Kunal Wilks FNP [address] [place] [address] Nurse Practitioner Family Medicine 08/29/23 documented as of this encounter
== END 2024-11-17 02:03 | disposition left against medical advice (07) ==
PROVIDERS: Emergency Provider Emergency Medicine; PCP Registered Nurse
DX: M25.562 Pain in left knee (principal); Z53.21 Procedure and treatment not carried out due to patient leaving prior to being seen by health care provider
CPT/HCPCS: 99281